=== PATIENT | male | born 2000 | race African-American/Black ===

== ENCOUNTER 2024-01-26 05:50 | Emergency (ER) | payer OTHER, SELFPAY ==
[2024-01-26] VITALS (14 sets, daily range): BP systolic 116–142; BP diastolic 68–93; PULSE 64–88; RESP 16; TEMP 36.3; O2SAT 79–100; BMI 45.8
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
[2024-01-26 06:35] LABS: Basophils Absolute Auto 0.03 K/uL (0.00-0.30); Basophils Percent Auto 0.3 % (0.0-3.0); Eosinophils Percent Auto 2.2 % (0.0-7.0); Hematocrit 46.1 % (37.0-53.0); Hemoglobin* 14.9 gm/dL (13.5-17.5); Immature Granulocytes Abs Auto 0.02 K/uL (0.00-0.30); Immature Granulocytes Pct Auto 0.2 %; Lymphocytes Absolute Auto 3.01 K/uL (0.90-2.90); Lymphocytes Percent Auto 33.8 % (20-44); Mean Corpuscular HGB Conc 32 gm/dL (32-36); Mean Corpuscular Hemoglobin 29 pg (26-34); Mean Corpuscular Volume 89 fL (80-100); Monocytes Percent Auto 6.4 % (0.0-11.0); Neutrophils Absolute Auto 5.08 K/uL (1.7-7.0); Neutrophils Percent Auto 57.1 % (42.0-72.0); Platelet Count* 248 K/uL (140-440); RDW Coefficient of Variation % 12.5 % (11.5-15.5); Red Blood Count 5.18 m/uL (4.30-5.90); White Blood Count* 8.91 K/uL (4.50-11.00)
[2024-01-26 06:36] LABS: Chloride* 104 mmol/L (96-114); Potassium* 3.7 mmol/L (3.6-5.1); Sodium* 136 mmol/L (135-149)
[2024-01-26 06:39] LABS: Anion Gap 7 mEq/L (7-15); Blood Urea Nitrogen* 10 mg/dL (5-24); Calcium* 8.8 mg/dL (8.4-10.6); Carbon Dioxide* 25 mmol/L (20-32); Creatinine* 0.7 mg/dL (0.5-1.5); Est. Creatinine Clearance* 177.06; Estimated Glomerular Filt Rate 131 ml/min; Glucose* 177 mg/dL (60-115); Slide Review Reflex No
[2024-01-26] MEDS: LIDOCAINE 1%-EPI 1:100,000 5 ML INFILTRATI (07:15)
[2024-01-26] MEDS: HYDROmorphone 0.5 mg/0.5 ml inj 1 MG IVP (07:55)
[2024-01-26] MEDS: CEFAZOLIN 2 GM in 0.9 % SODIUM CHLORIDE Mini-bag 100 ML IVPB (08:01)
[2024-01-26] MEDS: TETANUS/DIPHTH/PERTUSSIS 0.5 ML SYRINGE IM (08:17)
== END 2024-01-26 09:08 | disposition other institution (70) ==
PROVIDERS: Emergency Provider Emergency Medicine
DX: S42.202A Unspecified fracture of upper end of left humerus, initial encounter for closed fracture (principal); S42.402B Unspecified fracture of lower end of left humerus, initial encounter for open fracture; V49.3XXA Car occupant (driver) (passenger) injured in unspecified nontraffic accident, initial encounter; S61.411A Laceration without foreign body of right hand, initial encounter
CPT/HCPCS: 12001; 36415; 70450; 71260; 72125; 73030; 73070; 73090; 74177; 80048; 85025; 90471; 90715; 94761; 96365; 96375; 99284; 99291; M0243; G0390; J0690; J1171; Q9967

== ENCOUNTER 2024-01-26 08:33 | Outpatient (CLI) | payer OTHER, SELFPAY ==
--- OUTSIDE RECORDS SUMMARY | 2024-02-11 13:19 | XMS_ITS | Referral Summary ---
Author Organization [facility] Address [address] [place] [phone] Phone Care Team Providers Care Director Workforce Management Name Role Phone Donna Baker MD Unavailable [phone] Source Comments [employer] is fully rolled out on [employer]. Last update 09/15/08.[place] Encounters Date Type Department Care Team Description 02/11/2024 9:40 AM CDT Hospital Encounter [facility] [address] [place] [id number] Kenisha Banuelos PA-C Arrived 02/11/2024 Travel 02/11/2024 9:00 AM CDT [facility] Visit [facility] [address] [place] [id number] Kenisha Banuelos PA-C Left elbow fracture, open, initial encounter (Primary Dx) Discharge Disposition: Discharged to home or self care 02/10/2024 Travel 02/10/2024 1:00 PM CDT Nurse Only [facility] [address] [place] [address] Vivek Shin MD Discharge Disposition: Discharged to home or self care 02/09/2024 Documentation Only [facility] [address] [place] [id number] Donna Baker MD Form - Disability (Unum / Attending Physician Statement ) 01/29/2024 7:30 AM CDT - 01/29/2024 11:07 AM CDT Surgery OR G1 [address] [place] [address] Donna Baker MD ORIF distal humerus 01/29/2024 7:19 AM CDT Anesthesia Event OR G1 [address] [place] [address] Montrell Frias MD Jensen, Anitra Russ MD 01/29/2024 5:38 AM CDT - 01/29/2024 3:35 PM CDT Hospital Encounter PACU G[address] [place] [address] Donna Baker MD Left elbow fracture, open, initial encounter Discharge Disposition: Discharged to home or self care 01/27/2024 DEX MED HOSPITALIST SERV [place] [phone] Vivek Quevedo DO 01/26/2024 9:55 AM CDT - 01/27/2024 5:04 PM CDT Emergency [facility] [place] Orthopaedic [address] [place] [address] Jessica Garza MD Gayken, MD José Gonzales, Daina Del Rio MD Humeral head fracture, left, closed, initial encounter Discharge Disposition: Discharged to home or self care 01/26/2024 5:30 PM CDT Anesthesia Event OR P4 [address] [place] [address] Bryce Ludwig MD Ahinful, Jana P, RN 01/26/2024 4:08 PM CDT - 01/26/2024 5:46 PM CDT Surgery OR P4 [address] [place] [address] Basil Sanz MD IRRIGATION & DEBRIDEMENT ELBOW 01/26/2024 Orders Only [facility] [place] Film Room [facility] Radiology Department [facility] [address] [place] [address] Provider, Outside Referral of patient (Primary Dx) 01/26/2024 Travel from Last 3 Months Allergies No known active allergies Medications * Be aware that medications may not be up to date as of this document. Always verify current medications with patient. Medication Sig Dispensed Refills Start Date End Date Status bacitracin 500 unit/g externally external ointment Apply to lacerations of right arm and hand daily for 7 days, then switch to vaseline 28 g 01/28/2024 Active cyclobenzaprine (FLEXERIL) 10 mg oral Take 1 tablet (10 mg) by mouth 3 times daily as needed for Muscle Spasm(s). 20 tablet 01/27/2024 Active sennosides-docu sate sodium (STOOL SOFTENER/LAXATI VE) 8.6-50 mg oral tablet Take 1 tablet by mouth twice daily. 30 each 01/27/2024 Active acetaminophen (TYLENOL) 325 mg oral tablet Take 2 tablets (650 mg) by mouth every 4 hours as needed for pain 100 each 02/11/2024 Active acetaminophen (TYLENOL) 325 mg oral tablet Take 2 tablets (650 mg) by mouth every 4 hours as needed for Mild Pain or Moderate Pain. 100 each 01/27/2024 02/11/20 24 Discontinued(Reo rder) oxyCODONE (ROXICODONE) 5 mg oral tablet Take 1-2 tablets (5-10 mg) by mouth every 4 hours as needed for Pain. 20 tablet 01/27/2024 01/29/20 24 Discontinued oxyCODONE (ROXICODONE) 5 mg oral tablet Take 1-2 tablets (5-10 mg) by mouth every 4 hours as needed for Pain (Severe). 10 tablet 01/29/2024 02/01/20 24 Active Problems Problem Noted Date Diagnosed Date Humeral head fracture, left, closed, initial enc ounter 01/26/2024 Left elbow fracture, open, initial encounter Social History Tobacco Use Types Packs/Day Years Used Date Smoking Tobacco: Never Assessed Sex and Gender Information Value Date Recorded Sex Assigned at Not on file Gender Identity Not on file Sexual Orientation Not on file Last Filed Vital Signs Vital Sign Reading Time Taken Comments Blood Pressure 111/59 01/29/2024 2:12 PM CDT Pulse 100 01/29/2024 2:12 PM CDT Temperature 35.1 ??C (95.1 ??F) 01/29/2024 1:41 PM CD T Respiratory Rate 22 01/29/2024 2:12 PM CDT Oxygen Saturation 99% 01/29/2024 2:12 PM CDT Inhaled Oxygen Concentration - - Weight 153.8 kg (339 lb) 01/29/2024 5:53 AM CDT Height 182.9 cm (6') 01/29/2024 5:53 AM CDT Body Mass Index 45.98 01/29/2024 5:53 AM CDT Plan of Treatment Upcoming Encounters Date Type Department Care Team (Late st Contact Info) Description 02/12/2024 11:00 AM CDT Hospital Encounter [facility] [address] [place] [phone] 03/14/2024 11:15 AM HUMAN RESOURCES TRAINER Appointment [facility] [address] [place] [address] Kenisha Banuelos PA-C [address] [place] [address] [phone] Scheduled Discharge Disposition: Discharged to home or self care 03/14/2024 11:40 AM HUMAN RESOURCES TRAINER Office [facility] [address] [place] [address] Donna Baker MD [phone] [address] Scheduled Discharge Disposition: Discharged to home or self care Medical Devices Implanted Type Area Refrigerating Technician Device Identifier Shelf Expiration Date Model / Serial / Lot 3.5 Cormikycrew Ar-[id number] Implanted:Qty: 1 on 01/29/2024 by Donna Baker MD at [facility] [place] Left: Elbow [employer] 01/11/2028 [id number] / / [id number] 12-Hole [id number] Implanted:Qty: 1 on 01/29/2024 by Donna Baker MD at [facility] Plate Left: Elbow [employer] PL-[id number] / / 18mm 30-0260 Implanted:Qty: 1 on 01/29/2024 by Donna Baker MD at [facility] Plate Left: Elbow [employer] 30-0260 / / Standard 5-Hole L 70-0304 Implanted:Qty: 1 on 01/29/2024 by Donna Baker MD at [facility] Plate Left: Elbow [employer] 70-0304 / / 18mm 30-0329 Implanted:Qty: 2 on 01/29/2024 by Donna Baker MD at [facility] Screw/[place] Left: Elbow [employer] 30-0329 / / 20mm 30-0330 Implanted:Qty: 1 on 01/29/2024 by Donna Baker MD at [facility] Screw/[place] Left: Elbow [employer] 30-0330 / / 45mm 30-0295 Implanted:Qty: 1 on 01/29/2024 by Donna Baker MD at [facility] Screw/[place] Left: Elbow [employer] 30-0295 / / 24mm 30-0263 Implanted:Qty: 2 on 01/29/2024 by Donna Baker MD at [facility] Screw/[place] Left: Elbow [employer] 30-0263 / / 30mm 30-0266 Implanted:Qty: 2 on 01/29/2024 by Donna Baker MD at [facility] Screw/[place] Left: Elbow [employer] 30-0266 / / 45mm 30-0272 Implanted:Qty: 1 on 01/29/2024 by Donna Baker MD at [facility] Screw/[place] Left: Elbow [employer] 30-0272 / / 50mm 30-0273 Implanted:Qty: 1 on 01/29/2024 by Donna Baker MD at [facility] Screw/[place] Left: Elbow [employer] 30-0273 / / 20mm 30-0261 Implanted:Qty: 1 on 01/29/2024 by Donna Baker MD at [facility] Screw/[place] Left: Elbow [employer] 30-0261 / / 22mm 30-0262 Implanted:Qty: 1 on 01/29/2024 by Donna Baker MD at [facility] Screw/[place] Left: Elbow [employer] 30-0262 / / 3.5 X 65 Mm Va Lkh Screw Implanted:Qty: 1 on 01/29/2024 by Donna Baker MD at [facility] Left: Elbow [employer] [id number] / / 3.5 X 42 Mm Va Lkh Screw Implanted:Qty: 1 on 01/29/2024 by Donna Baker MD at [facility] Left: Elbow [employer] [id number] / / 3.5 X 10 Mm Va Lkh Screw Implanted:Qty: 1 on 01/29/2024 by Donna Baker MD at [facility] Left: Elbow [employer] [id number] / / Axoguard Nerve Protector 3 X 6 Implanted:Qty: 1 on 01/29/2024 by Donna Baker MD at [facility] Left: Elbow [employer] 01/06/2025 [facility] / / [id number] Procedures Procedure Name Priority Date/Time Associated Diagnosis Comments XR ELBOW LEFT 3/4 VIEWS* Routine 02/11/2024 9:56 AM CDT Left elbow fracture, open, initial encounter XR ELBOW LEFT 2 VIEWS Routine 01/29/2024 12:25 PM CDT XR C ARM OVER 3 HRS Routine 01/29/2024 1 2:25 PM CDT INTUBATION Routine 01/29/2024 8:07 AM CDT PF SONO GUIDE NEEDLE BIOPSY Routine 01/29/2024 8:04 AM CDT PF INJECT ANESTHETIC/STEROID, BRACHIAL PLEXUS W/IMG GDN Routine 01/29/2024 8:04 AM CDT PC NEED CUTCH CLEANER REVIEW Urgent (< 48 hrs) 01/29/2024 7:04 AM CDT Left elbow fracture, open, initial encounter TRANSPOSITION, NERVE, ULNAR Urgent (< 48 hrs) 01/29/2024 7:04 AM CDT Left elbow fracture, open, initial encounter REPAIR OR RECONSTRUCTION, LIGAMENT Urgent (< 48 hrs) 01/29/2024 7:04 AM CDT Left elbow fracture, open, initial encounter ORIF, ELBOW Urgent (< 48 hrs) 01/29/2024 7:04 AM CDT Left elbow fracture, open, initial encounter POC GLUCOSE Routine 01/29/2024 6:28 AM CDT POC GLUCOSE Routine 01/27/2024 6:05 AM CDT PC LAB GLYCOSYLATED HGB Routine 01/27/2024 5:22 AM CDT PC LAB CBC/PLT Routine 01/27/2024 5:22 AM CDT PANEL BASIC METABOLIC (BMP) Routine 01/27/2024 5:22 AM CDT POC GLUCOSE Routine 01/27/2024 12:30 AM CDT POC GLUCOSE Routine 01/26/2024 6:40 PM CDT PC NEED CUTCH CLEANER REVIEW Urgent (< 48 hrs) 01/26/2024 5:20 PM CDT Left elbow fracture, open, initial encounter XR SHOULDER LT 2/3V AP/GRASH/Y* STAT 01/26/2024 12:[address] LEFT ELBOW NO IV CONTRAST STAT 01/26/2024 12:49 PM CDT XR ELBOW LEFT 2 VIEWS STAT 01/26/2024 11:26 AM CDT LACERATION REPAIR Routine 01/26/2024 10: 30 AM CDT PC SIMPLE REPAIR, SCALP, NECK, AXILLAE, EXT GENITALIA, TRUNK OR EXTREMITIES; 2.5 CM OR LESS Routine 01/26/2024 10:[address] OUTSIDE READ CHEST/ABD/PELV STAT 01/26/2024 10:[address] OUTSIDE READ SPINE CERVICAL/NECK STAT 01/26/2024 10:[address] OUTSIDE READ HEAD/FACIAL BONES STAT 01/26/2024 10:26 AM CDT TC LAB BLOOD DRAW BY VENIPUNCTURE Routine 01/26/2024 9:57 AM CDT PC TROPONIN QUANTITATIVE STAT 01/26/2024 9:57 AM CDT ETHANOL (ETOH) LEVEL, BLOOD STAT 01/26/2024 9:57 AM CDT PC LAB PTT STAT 01/26/2024 9:57 AM CDT PROTHROMBIN (PT) & INR STAT 01/26/2024 9:57 AM CDT PC LAB ED INR STAT 01/26/2024 9:57 AM CDT PC LACTATE (LACTIC ACID) STAT 01/26/2024 9:57 AM CDT FIBRINOGEN STAT 01/26/2024 9:57 AM CDT PANEL HEPATIC FUNCTION STAT 01/26/2024 9:57 AM CDT TC LAB ER STAT TOTAL HGB STAT 01/26/2024 9:57 AM CDT PC ELECTROLYTES PANEL STAT 01/26/2024 9:57 AM CDT PC LAB CBC W/DIFF & PLT STAT 01/26/2024 9:57 AM CDT PC GASES,BLOOD,ANY COMB OF PH,PCD2,PO2,CO2,HCO2 STAT 01/26/2024 9:57 AM CDT ED US CRITICAL CARE STAT 01/26/2024 9 :56 AM CDT PC ANTIBODY SCREEN,RBC,EACH SERUM TECHNIQUE Routine 01/26/2024 9:51 AM CDT PC LAB RH TYPE GEL Routine 01/26/2024 9: 51 AM CDT PRECAUTIONARY TUBE STAT 01/26/2024 9: 51 AM CDT XR UPPER EXTREMITY OUTSIDE FILMS Routine 01/26/2024 6:54 AM CDT Referral of patient XR UPPER EXTREMITY OUTSIDE FILMS Routine 01/26/2024 6:51 AM CDT Referral of patient XR UPPER EXTREMITY OUTSIDE FILMS Routine 01/26/2024 6:47 AM CDT Referral of patient from Last 3 Months Results * XR ELBOW LEFT 3/4 VIEWS* (02/11/2024 9:56 AM CDT) Anatomical Region Laterality Modality Lower Arm Digital Radiogra phy 02/11/2024 10:0 3 AM CDT Impressions 02/11/2024 10:06 AM CDT Impression: Restored anatomic alignment Reading Radiologist: Basil Elias Narrative 02/11/2024 10:06 AM CDT EXAMINATION: XR ELBOW LEFT 3/4 VIEWS* 02/11/2024 9:56 AM Indication: ??PO ORIF ??. Comparison: 01/26/2024 Findings: Postop ORIF left elbow fracture with metaphyseal plate and olecranon plate restore anatomic configuration to the comminuted elbow fracture. Suture anchor present lateral epicondyle. Procedure Note Basil Elias MD - 02/11/2024 EXAMINATION: XR ELBOW LEFT 3/4 VIEWS* 02/11/2024 9:56 AM Indication: PO ORIF . Comparison: 01/26/2024 Findings: Postop ORIF left elbow fracture with metaphyseal plate andolecranon plate restore anatomic configuration to the comminuted elbowfracture. Suture anchor present lateral epicondyle. IMPRESSION Impression: Restored anatomic alignment Reading Radiologist: Basil Elias Kenisha Banuelos [facility] * XR ELBOW LEFT 2 VIEWS (01/29/2024 12:25 PM CDT) Only the most recent of2 resultswithin the time period is included. Anatomical Region Laterality Modality Lower Arm Radio Fluoroscop y 01/29/2024 1:13 PM CDT Impressions 01/29/2024 1:21 PM CDT Impression: Spot films and fluoroscopy time provided to the OR. I have personally reviewed the image(s) and initial interpretation, and I agree with the findings as documented by the resident/fellow. Reading Radiologist: Dg Negrete Resident: Danny Mooney Narrative 01/29/2024 1:21 PM CDT Technique: XR ELBOW LEFT 2 VIEWS Indication:ORIF left elbow Comparison:AP and lateral views of the left elbow dated 01/26/2024. Fluoroscopy time:0.9 minutes Dose:2.47 mGy Findings: Fluoroscopy time and spot-film imaging was provided to the OR. Spot images show interval plate and screw fixation of the left distal humerus and proximal ulna fractures. Alignment has improved. Joint is preserved. No radiologist was present. Procedure Note Dg Negrete, DO - 01/29/2024 Technique: XR ELBOW LEFT 2 VIEWS Indication:ORIF left elbow Comparison:AP and lateral views of the left elbow dated 01/26/2024. Fluoroscopy time:0.9 minutes Dose:2.47 mGy Findings: Fluoroscopy time and spot-film imaging was provided to the OR.Spot images show interval plate and screw fixation of the left distalhumerus and proximal ulna fractures. Alignment has improved. Joint ispreserved. No radiologist was present. IMPRESSION Impression: Spot films and fluoroscopy time provided to the OR. I have personally reviewed the image(s) and initial interpretation, and Iagree with the findings as documented by the resident/fellow. Reading Radiologist: Dg Negrete Resident: Danny Mooney Donna Baker MD RAD XRAY * XR C ARM OVER 3 HRS (01/29/2024 12:25 PM CDT) Donna Baker MD RAD FLUORO * Intubation/Airway (01/29/2024 8:07 AM CDT) Narrative Rodrigue Elias APRN, CRNA - 01/29/2024 8:07 AM CDT Rodrigue Elias APRN, CRNA ? 01/29/2024 ??8:08 AM AIRWAY/INTUBATION PROCEDURE direct laryngoscopy ??(Type: Surgical Anesthesia) Process/Method: sedated and paralyzed ?? Indications for procedure: surgery Assessment: TMD >3 finger breadths and vocal cords open and clear Preoxygenation: mask Device Device used: Emotient Supporting device: ?? Blade size: 2 The patient was intubated with a 8.0 mm standard endotracheal tube inflated to seal and secured at 24 cm to Lips Grade: II Sellicks not used Narrative 1 intubation attempt(s) confirmed in 0-30 sec ?? Intubation Assessment: +ETCO2, EBBS and fog in ETT Ease of masking (I-easy to IV-difficult): I Ease of intubation (I-easy to IV-difficult): I Dentition Assessment: dentition unchanged and oral mucosa unchanged Performed by: APPELLATE CONFEREE: Rodrigue Elias APRN, CRNA Additional Notes Ramp used Events Anesthesia start: 01/29/2024 7:19 AM Intubation time: 01/29/2024 7:36 AM Montrell Frias MD PROCEDURES * PF INJECT ANESTHETIC/STEROID, BRACHIAL PLEXUS W/IMG GDN, ROSLYN SONO GUIDE NEEDLE BIOPSY (01/29/2024 8:04 AM CDT) Narrative Montrell Frias MD - 01/29/2024 8:04 AM CDT Montrell Frias MD ? 01/29/2024 ??8:05 AM NERVE BLOCK PROCEDURE ?? supraclavicular (Type: At surgeon's request for post-op analgesia) Laterality: left Prep: ChloraPrep Patient Position: Sitting [place] Precautions Completed: patient identified, site marked, surgical consent, pre-op evaluation, timeout performed, IV checked, risks and benefits discussed and monitors and equipment checked Medications bupivacaine 0.25%-EPINEPHrine (1:200,000) 0.25% (1:427419) injection - Block 30 mL - 01/29/2024 7:25:00 AM dexmedetomidine (PRECEDEX) ANES/INTRA-OP NERVE BLOCK only - Block 50 mcg - 01/29/2024 7:25:00 AM Narrative A 10 cm 21 G [place] ??needle was used. The block was placed as a single-shot Technique: ultrasound guidance. Ultrasound guidance was used to image the upper extremity. A hard copy image was not stored in the patient's record documenting this service using real time ultrasound guidance. No complications Paresthesias: No There was no blood or CSF return on aspiration ?? The injection was not painful to the patient ? no bleeding at site Performed by: APPELLATE CONFEREE:Anesthesiologist: Montrell Frias MD Montrell Frias MD PROCEDURES * POC GLUCOSE (01/29/2024 6:28 AM CDT) Only the most recent of4 resultswithin the time period is included. POC Glucose 86 70 - 100 mg/dL [facility] Blood 01/29/2024 6:28 AM CDT Donna Baker MD LABORATORY [facility] [address] [place] [address], * (ABNORMAL) PANEL BASIC METABOLIC (BMP) (01/27/2024 5:22 AM CDT) Pathologist [facility] CO2 24 22 - 30 mmol/L [facility] [place] [facility] Glucose 121(H) 70 - 100 mg/dL [facility] [place] [place] [facility] BUN 10 6 - 20 mg/dL [facility] [place] [place] [facility] Creatinine 0.79 0.70 - 1.25 mg/dL [facility] [place] [place] [facility] Calcium 8.5(L) 8.6 - 10.0 mg/dL [facility] [place] [place] [facility] Sodium 137 135 - 148 mmol/L [facility] [place] [place] [facility] Potassium 4.4 3.5 - 5.3 mmol/L [facility] [place] [place] [facility] Chloride 104 92 - 108 mmol/L [facility] [place] [place] [facility] eGFR (2020 CKD-EPI) >120 >=60 ml/min/1.7 3m2 [facility] [place] [place] [facility] Comment: The estimated glomerular filtration rate (eGFR) was calculated using the CKD-EPI 2020 creatinine equation, which does not include race as a factor. This equation is validated in individuals 18 years of age and older, and eGFR is normalized to a body surface area of 1.73m^2. AnGap 9 8 - 16 mmol/L [facility] [place] [place] [facility] Blood 01/27/2024 5:22 AM CDT 01/27/2024 6:21 AM CDT Jessica Garza MD LABORATORY Performing Organization Address [facility] Co de Phone Number [facility] [place] [place] [facility] [address] [address] * (ABNORMAL) GLYCOSYLATED HGB - A1C (01/27/2024 5:22 AM CDT) Hemoglobin A1C 5.8(H) 4.0 - 5.6 % [facility] [place] [place] [facility] Comment: Increased risk for diabetes (prediabetes): 5.7-6.4% Diabetes >=6.5% In the absence of unequivocal hyperglycemia, diagnosis requires two abnormal test results (i.e. HbA1c and glucose) or two abnormal results from specimens collected at two different timepoints. The presence of some hemoglobin variants or red cell disorders may interfere with the measurement of hemoglobin A1c (HbA1c). Estimated Average Glucose 120(H) 68 - 114 mg/dL [facility] [place] [place] [facility] Comment: The estimated Average Glucose (eAG) was calculated using an equation derived from a study of 507 adults with type 1, type 2, or no diabetes. Minority populations were underrepresented and children were not included. The eAG is not equivalent to a fasting glucose concentration. Blood 01/27/2024 5:22 AM CDT 01/27/2024 12:35 PM CDT Eric Anthony MD LABORATORY Performing Organization Address [facility] Co de Phone Number [facility] [place] [place] [facility] [address] [address] * (ABNORMAL) CBC WITH PLATELET (01/27/2024 5:22 AM CDT) WBC 5.77 4.00 - 10.00 k/cmm [facility] [place] [place] [facility] RBC 4.56(L) 4.60 - 6.00 m/cmm [facility] [place] [place] [facility] Hgb 13.3 13.1 - 17.5 g/dL [facility] [place] [place] [facility] Hematocrit 40.6 40.0 - 51.0 % [facility] [place] [place] [facility] MCV 89.0 80.0 - 100.0 fL [facility] [place] [place] [facility] MCH 29.2 25.0 - 32.0 pg [facility] [place] [place] [facility] MCHC 32.8 31.0 - 36.0 g/dL [facility] [place] [place] [facility] RDW 12.9 11.5 - 14.5 % [facility] [place] [place] [facility] Plt 170 150 - 400 k/cmm [facility] [place] [place] [facility] MPV 12.1 6.5 - 12.5 fL [facility] [place] [place] [facility] Blood 01/27/2024 5:22 AM CDT 01/27/2024 6:20 AM CDT Jessica Garza MD LABORATORY Performing Organization Address City/State/[facility] Co de Phone Number [facility] [place] [place] [facility] [address] [address] * XR SHOULDER LT 2/3V AP/GRASH/Y* (01/26/2024 12:59 PM CDT) Anatomical Region Laterality Modality Upper Arm Computed Radiogr aphy 01/26/2024 1:01 PM CDT Impressions 01/26/2024 1:03 PM CDT Impression: Comminuted, depressed fracture of the left humerus greater tuberosity. Reading Radiologist: Dg Negrete Narrative 01/26/2024 1:03 PM CDT Technique: XR SHOULDER LT 2/3V AP/GRASH/Y* Indication: trauma, possible fracture ?? Comparison: Same-day CT Findings: Comminuted and depressed fracture of the greater tuberosity of the proximal left humerus. Left surgical neck is intact. Preserved alignment of the shoulder articulations. Procedure Note Dg Negrete DO - 01/26/2024 Technique: XR SHOULDER LT 2/3V AP/GRASH/Y* Indication: trauma, possible fracture Comparison: Same-day CT Findings: Comminuted and depressed fracture of the greater tuberosity ofthe proximal left humerus. Left surgical neck is intact. Preservedalignment of the shoulder articulations. IMPRESSION Impression: Comminuted, depressed fracture of the left humerus greater tuberosity. Reading Radiologist: Dg Negrete Jessica Garza MD RAD XRAY * CT LEFT ELBOW NO IV CONTRAST (01/26/2024 12:49 PM CDT) Anatomical Region Laterality Modality Upper Arm Computed Tomogra phy 01/26/2024 12:0 9 PM CDT Impressions 01/26/2024 9:15 PM CDT Impression: 1. Comminuted fracture of the medial condyle of the distal humerus with pronounced peripheral displacement of condylar and epicondyle fragments, the peripheral- most fragment approximating medial soft tissue/cutaneous injury. 2. Avulsion/chip fractures of the medial margins of the olecranon process. 3. Widening and posterior subluxation of the radiocapitellar joint. The capitellar articular surface appears preserved. 4. Fluid distention of the olecranon bursa with adjacent subcutaneous edema and scattered subcutaneous and intramuscular gas. Reading Radiologist: Dg Negrete Narrative 01/26/2024 9:15 PM CDT Comparison: Radiograph, 01/26/2024 Indication: ??intra-articular left elbow fracture ? Technique: Volumetric helical acquisition of CT images of the left elbow without intravenous contrast. DOSE: ?Total DLP = 1894.9 mGy.cm. ?? Findings: Osseous Structures: Comminuted and minimally displaced fracture primarily involving the medial condyle of the distal humerus. The capitellar articular surface appears grossly intact without distinct supracondylar fracture. Blunting along the medial aspect of the olecranon process concerning for avulsion or chip fracture. Otherwise, proximal radius and ulna are intact. Posterior subluxation of the radius relative capsular articular surface. Soft Tissues: Peripheral-most bony fragment approximate the cutaneous surface with areas evidence of laceration/wound (series 202, image 101). Adjacent and emanating soft tissue gas and olecranon predominant subcutaneous fluid. Gas extends superiorly along the biceps musculature and medial neurovascular structures. Triceps and biceps tendon appear grossly intact. Joint effusion. Procedure Note Dg Negrete, - 01/26/2024 Comparison: Radiograph, 01/26/2024 Indication: intra-articular left elbow fracture Technique: Volumetric helical acquisition of CT images of the left elbowwithout intravenous contrast. DOSE: Total DLP = 1894.9 mGy.cm. Findings: Osseous Structures: Comminuted and minimally displaced fracture primarilyinvolving the medial condyle of the distal humerus. The capitellararticular surface appears grossly intact without distinct supracondylarfracture. Blunting along the medial aspect of the olecranon process concerning foravulsion or chip fracture. Otherwise, proximal radius and ulna are intact.Posterior subluxation of the radius relative capsular articular surface. Soft Tissues: Peripheral-most bony fragment approximate the cutaneoussurface with areas evidence of laceration/wound (series 202, image 101).Adjacent and emanating soft tissue gas and olecranon predominantsubcutaneous fluid. Gas extends superiorly along the biceps musculatureand medial neurovascular structures. Triceps and biceps tendon appeargrossly intact. Joint effusion. IMPRESSION Impression: 1. Comminuted fracture of the medial condyle of the distal humerus withpronounced peripheral displacement of condylar and epicondyle fragments,the peripheral-most fragment approximating medial soft tissue/cutaneousinjury. 2. Avulsion/chip fractures of the medial margins of the olecranonprocess. 3. Widening and posterior subluxation of the radiocapitellar joint. Thecapitellar articular surface appears preserved. 4. Fluid distention of the olecranon bursa with adjacent subcutaneousedema and scattered subcutaneous and intramuscular gas. Reading Radiologist: Dg Negrete Jessica Garza MD RAD CT BODY * Nerve Block (01/26/2024 10:30 AM CDT) Narrative Jessica Garza MD - 01/26/2024 10:30 AM CDT Alexsandra Arias MD ? 01/26/2024 12:43 PM Nerve Block Performed by: Alexsandra Arias MD Authorized by: Jessica Garza MD ?? Consent: ??Consent obtained: ??Verbal ??Consent given by: ??Patient ??Risks discussed: ??Allergic reaction, bleeding, intravenous injection, infection, nerve damage, pain, unsuccessful block and swelling [place] protocol: ??Patient identity confirmed: ??Verbally with patient, arm band and hospital-assigned identification number Indications: ??Indications: ??Procedural anesthesia Location: ??Body area: ??Upper extremity ??Upper extremity nerve blocked: Median and ulnar. ??Laterality: ??Right Pre-procedure details: ??Skin preparation: ??Chlorhexidine ??Preparation: Patient was prepped and draped in usual sterile fashion ?? Procedure details: ??Block needle gauge: ??25 G ??Guidance: ultrasound ?Anesthetic injected: ??Lidocaine 1% WITH epi (5cc) ??Steroid injected: ??None ??Additive injected: ??None ??Injection procedure: ??Anatomic landmarks identified, anatomic landmarks palpated, incremental injection, introduced needle and negative aspiration for blood ??Paresthesia: ??None Post-procedure details: ??Dressing: ??None ??Outcome: ??Anesthesia achieved ??Procedure completion: ??Tolerated well, no immediate complications Jessica Garza MD PROCEDURES * Laceration Repair (01/26/2024 10:30 AM CDT) Narrative Jessica Garza MD - 01/26/2024 10:30 AM CDT Alexsandra Arias MD ? 01/26/2024 12:43 PM Laceration Repair Performed by: Alexsandra Arias MD Authorized by: Jessica Garza MD ?? Consent: ??Consent obtained: ??Verbal ??Consent given by: ??Patient ??Risks discussed: ??Infection, poor wound healing, poor cosmetic result and pain [place] protocol: ??Patient identity confirmed: ??Verbally with patient, arm band and hospital-assigned identification number Anesthesia: ??Anesthesia method: see nerve block note. Laceration details: ??Location: ??Shoulder/arm ??Shoulder/arm location: ??R lower arm ??Wound length (cm): see picture. Pre-procedure details: ??Preparation: ??Patient was prepped and draped in usual sterile fashion Exploration: ??Imaging outcome: foreign body not noted ?Wound exploration: entire depth of wound visualized ?Wound extent: no areolar tissue violation noted, no fascia violation noted, no foreign bodies/material noted, no muscle damage noted, no nerve damage noted, no tendon damage noted, no underlying fracture noted and no vascular damage noted ?Contaminated: no ?? Treatment: ??Area cleansed with: ??Povidone-iodine and chlorhexidine ??Amount of cleaning: ??Standard ??Irrigation solution: ??Sterile water ??Debridement: ??None ??Undermining: ??None Skin repair: ??Repair method: ??Sutures ??Suture size: ??4-0 ??Wound skin closure material used: ethilon. ??Number of sutures: 10 total, 4-3-3 split between his lacerations. Approximation: ??Approximation: ??Close Repair type: ??Repair type: ??Simple Post-procedure details: ??Dressing: ??Open (no dressing) ??Procedure completion: ??Tolerated well, no immediate complications Jessica Garza MD PROCEDURES * CT OUTSIDE READ CHEST/ABD/PELV (01/26/2024 10:27 AM CDT) Anatomical Region Laterality Modality Chest, Pelvis, Abdomen Computed Tomography 01/26/2024 10:3 8 AM CDT Impressions 01/26/2024 1:08 PM CDT Impression: ?? 1. Suspect a left proximal humerus fracture. 2. Subtle asymmetric angulation of the posterior right 5th-9th ribs; although this appearance could be within normal limits, ??nondisplaced buckle-type fractures of the ribs are a possibility. 3. No suspected acute sequela of trauma in the abdomen or pelvis. The findings were communicated to Dr. Alvarez of the admitting trauma surgery service by [employer] message at 1315 hours on 01/26/[address] Stark. I have personally reviewed the image(s) and initial interpretation, and I agree with the findings as documented by the resident/fellow. Reading Radiologist: Phu Stark Resident: Christian Escobar Narrative 01/26/2024 1:08 PM CDT Indication: ??Patient transferred from [facility] due to Trauma. ??Dr. ??JESSICA GARZA requested an interpretation by me. Technique: ??CT scan of the chest/abdomen/pelvis done on 01/26/2024 with IV contrast. ??3 mm axial, sagittal and coronal reconstructions reviewed in soft tissue and bone windows, per the local institution's scanning protocols, which may differ from the [facility] [place] trauma protocols. Findings: Chest: Lungs: No lung nodule or mass. No consolidation. Mild reticular opacity in the dependent right lower lobe beneath the angulated right fifth through ninth ribs, favored atelectasis; contusion is felt less likely. Airway: Patent. Pleura: No pleural effusion or pneumothorax. Thoracic aorta and great vessels: Unremarkable. Pulmonary arteries: Unremarkable. Mediastinum, heart and pericardium: The heart is not enlarged. No pericardial effusion. Lymph nodes: No enlarged thoracic lymph nodes. Prominent bilateral axillary lymph nodes, presumably reactive. Other: Foci of air along the left subclavian vein, likely secondary to venous catheterization. The thyroid gland is unremarkable. Abdomen/Pelvis: Liver: Within normal limits. Gallbladder and biliary: No gallstones or biliary sludge. ??No wall thickening. ??No pericholecystic fluid. ??No significant intrahepatic or intrahepatic biliary dilatation. Pancreas: Within normal limits. Spleen: Within normal limits. Adrenals: Within normal limits. Kidneys/Ureters/Bladder: No hydronephrosis, renal calculi, or suspicious renal masses. ??Bladder is unremarkable. Reproductive: Within normal limits. Stomach/Esophagus: Within normal limits. Bowel: No dilated loops of small or large bowel. The stomach is unremarkable. The appendix is normal. Peritoneum/Retroperitoneum: No free air, free fluid, or acute inflammatory changes. Vessels: No aneurysmal dilatation of the aorta. Patent portal vein and superior mesenteric vein. Lymph Nodes: Subcentimeter mesenteric lymph nodes, likely reactive. Bones/Soft Tissues: Bones: Suspect a fracture of the left humeral head and greater tuberosity (series 7, images 1-6). Subtle asymmetric angulation of the posterior right 5th-9th ribs. Sclerotic foci in the bilateral ischial tuberosities and proximal femora likely represent benign bony islands. Soft tissues: No convincing acute soft tissue abnormality. Mild bilateral gynecomastia. Procedure Note Phu Stark, - 01/26/2024 Indication: Patient transferred from [facility] due to Trauma.Dr. JESSICA GARZA requested an interpretation by me. Technique: CT scan of the chest/abdomen/pelvis done on 01/26/2024 with IVcontrast. 3 mm axial, sagittal and coronal reconstructions reviewed insoft tissue and bone windows, per the local institution's scanningprotocols, which may differ from the [facility] [place] trauma protocols. Findings: Chest: Lungs: No lung nodule or mass. No consolidation. Mild reticular opacity inthe dependent right lower lobe beneath the angulated right fifth throughninth ribs, favored atelectasis; contusion is felt less likely. Airway: Patent. Pleura: No pleural effusion or pneumothorax. Thoracic aorta and great vessels: Unremarkable. Pulmonary arteries: Unremarkable. Mediastinum, heart and pericardium: The heart is not enlarged. Nopericardial effusion. Lymph nodes: No enlarged thoracic lymph nodes. Prominent bilateralaxillary lymph nodes, presumably reactive. Other: Foci of air along the left subclavian vein, likely secondary tovenous catheterization. The thyroid gland is unremarkable. Abdomen/Pelvis: Liver: Within normal limits. Gallbladder and biliary: No gallstones or biliary sludge. No wallthickening. No pericholecystic fluid. No significant intrahepatic orintrahepatic biliary dilatation. Pancreas: Within normal limits. Spleen: Within normal limits. Adrenals: Within normal limits. Kidneys/Ureters/Bladder: No hydronephrosis, renal calculi, or suspiciousrenal masses. Bladder is unremarkable. Reproductive: Within normal limits. Stomach/Esophagus: Within normal limits. Bowel: No dilated loops of small or large bowel. The stomach isunremarkable. The appendix is normal. Peritoneum/Retroperitoneum: No free air, free fluid, or acute inflammatorychanges. Vessels: No aneurysmal dilatation of the aorta. Patent portal vein andsuperior mesenteric vein. Lymph Nodes: Subcentimeter mesenteric lymph nodes, likely reactive. Bones/Soft Tissues: Bones: Suspect a fracture of the left humeral head and greater tuberosity(series 7, images 1-6). Subtle asymmetric angulation of the posteriorright 5th-9th ribs. Sclerotic foci in the bilateral ischial tuberosities and proximal femoralikely represent benign bony islands. Soft tissues: No convincing acute soft tissue abnormality. Mild bilateralgynecomastia. IMPRESSION Impression: 1. Suspect a left proximal humerus fracture. 2. Subtle asymmetric angulation of the posterior right 5th-9th ribs;although this appearance could be within normal limits, nondisplacedbuckle-type fractures of the ribs are a possibility. 3. No suspected acute sequela of trauma in the abdomen or pelvis. The findings were communicated to Dr. Alvarez of the admitting traumasurgery service by [employer] message at 1315 hours on 01/26/2024 by . I have personally reviewed the image(s) and initial interpretation, and Iagree with the findings as documented by the resident/fellow. Reading Radiologist: Phu Stark Resident: Christian Escobar Jessica Garza MD RAD CT BODY * CT OUTSIDE READ SPINE CERVICAL/NECK (01/26/2024 10:27 AM CDT) Anatomical Region Laterality Modality Cervical Spine Computed Tomogra phy 01/26/2024 10:3 1 AM CDT Impressions 01/26/2024 11:01 AM CDT Impression: ??No acute fracture or traumatic subluxation of the cervical spine. I have personally reviewed the image(s) and initial interpretation, and I agree with the findings as documented by the resident/fellow. Reading Radiologist: Sulaiman Sanchez Resident: Obed Thompson Narrative 01/26/2024 11:01 AM CDT Indication: ??Patient transferred from [facility] due to Trauma. ??No initial report accompanied the patient and/or Dr. ??JESSICA GARZA requested an interpretation by me. Technique: ??CT scan of the cervical spine done on 01/26/2024 without IV contrast. ??3 mm axial, sagittal and coronal reconstructions reviewed in soft tissue and bone windows, per the local institution's scanning protocols, which may differ from the [facility] [place] trauma protocols. Findings: ?? The lateral masses of C1 appear normally aligned on C2. Straightening of the normal cervical lordotic curvature, likely positional with c-collar in place. ??Alignment of the cervical vertebrae appears intact. There is no evidence of fracture or significant prevertebral soft tissue swelling. ??There is no significant disc space narrowing at any level. No significant neural foraminal narrowing or spinal canal stenosis at any level. Paracervical soft tissues are unremarkable. Procedure Note Sulaiman Sanchez MD - 01/26/2024 Indication: Patient transferred from [facility] due to Trauma.No initial report accompanied the patient and/or Dr. JESSICA Camargoequested an interpretation by me. Technique: CT scan of the cervical spine done on 01/26/2024 without IVcontrast. 3 mm axial, sagittal and coronal reconstructions reviewed insoft tissue and bone windows, per the local institution's scanningprotocols, which may differ from the [facility] [place] trauma protocols. Findings: The lateral masses of C1 appear normally aligned on C2. Straightening ofthe normal cervical lordotic curvature, likely positional with c-collar inplace. Alignment of the cervical vertebrae appears intact. There is noevidence of fracture or significant prevertebral soft tissue swelling.There is no significant disc space narrowing at any level. No significant neural foraminal narrowing or spinal canal stenosis at anylevel. Paracervical soft tissues are unremarkable. IMPRESSION Impression: No acute fracture or traumatic subluxation of the cervicalspine. I have personally reviewed the image(s) and initial interpretation, and Iagree with the findings as documented by the resident/fellow. Reading Radiologist: Sulaiman Sanchez Resident: Obed Thompson Jessica Garza MD RAD CT NEURO * CT OUTSIDE READ HEAD/FACIAL BONES (01/26/2024 10:26 AM CDT) Anatomical Region Laterality Modality Skull Computed Tomogra phy 01/26/2024 10:3 0 AM CDT Impressions 01/26/2024 11:04 AM CDT Impression: No acute intracranial pathology. I have personally reviewed the image(s) and initial interpretation, and I agree with the findings as documented by the resident/fellow. Reading Radiologist: Sulaiman Sanchez Resident: Lissette Bernabe 01/26/2024 11:04 AM CDT Indication: ??Patient transferred from [facility] due to Trauma. ??No initial report accompanied the patient and/or Dr. ??JESSICA GARZA requested an interpretation by me. Technique: ??CT scan of the head done on 01/26/2024 without IV contrast. ??3 mm axial and coronal reconstructions reviewed in soft tissue and bone windows, per the local institution's scanning protocols, which may differ from the [facility] [place] trauma protocols. Findings: There is no evidence of intracranial hemorrhage, mass effect, midline shift or abnormal extraaxial fluid collection. There is no definite evidence of acute infarction. The ventricles and sulci appear appropriate for age. Gee-white differentiation is normal throughout both cerebral hemispheres. The bony calvarium and the bones of the skull base appear normal. Review of visualized dentition does not reveal significant periapical dental disease. Mucosal thickening of the ethmoid sinuses. The visualized portions of the remaining paranasal sinuses and the mastoid air cells are clear. Procedure Note Sulaiman Sanchez MD - 01/26/2024 Indication: Patient transferred from [facility] due to Trauma.No initial report accompanied the patient and/or Dr. JESSICA Camargoequested an interpretation by me. Technique: CT scan of the head done on 01/26/2024 without IV contrast. 3mm axial and coronal reconstructions reviewed in soft tissue and bonewindows, per the local institution's scanning protocols, which may differfrom the [facility] [place] trauma protocols. Findings: There is no evidence of intracranial hemorrhage, mass effect,midline shift or abnormal extraaxial fluid collection. There is nodefinite evidence of acute infarction. The ventricles and sulci appearappropriate for age. Gee-white differentiation is normal throughout bothcerebral hemispheres. The bony calvarium and the bones of the skull base appear normal. Reviewof visualized dentition does not reveal significant periapical dentaldisease. Mucosal thickening of the ethmoid sinuses. The visualizedportions of the remaining paranasal sinuses and the mastoid air cells areclear. IMPRESSION Impression: No acute intracranial pathology. I have personally reviewed the image(s) and initial interpretation, and Iagree with the findings as documented by the resident/fellow. Reading Radiologist: Sulaiman Sanchez Reading Resident: Lissette Bernabe Jessica Garza MD RAD CT NEURO * ED INR (01/26/2024 9:57 AM CDT) [facility] ED INR 1.1 0.8 - 1.1 [facility] [place] [place] [facility] Comment: Warfarin Therapeutic Range: Standard Intensity: 2.0 - 3.0 High Intensity: 2.5 - 3.5 This is a rapid INR screening test which uses whole blood; results may infrequently differ from plasma INR results. If medication adjustments/dosing are required a PT/INR test ([id number]) should be ordered and performed in the main laboratory. Blood 01/26/2024 9:57 AM CDT 01/26/2024 10:04 AM CDT Jessica Garza MD LABORATORY Performing Organization Address [facility] Co de Phone Number [facility] [place] [place] [facility] [address] [address] * EXTRA TUBE - SST (01/26/2024 9:57 AM CDT) [facility] SST TUBE Stored [facility] [place] [place] [facility] Comment:SST tubes (Serum Sep arator) are stored in the lab for 3 days from the collection date. Blood 01/26/2024 9:57 AM CDT 01/26/2024 10:06 AM CDT Jessica Garza MD LABORATORY Performing Organization Address [facility] Co de Phone Number [facility] [place] [place] [facility] [address] [address] * HS TROPONIN (01/26/2024 9:57 AM CDT) [facility] HS Troponin I <3 <=35 ng/L [facility] [place] [place] [facility] Blood 01/26/2024 9:57 AM CDT 01/26/2024 10:04 AM CDT Narrative [facility] [place] [place] [facility] - 01/26/2024 10:35 AM CDT First Occurrence of the Troponin order is to be drawn Stat by Nursing staff on the unit. Jessica Garza MD LABORATORY Performing Organization Address [facility] Co de Phone Number [address] [address] * (ABNORMAL) ED CHEMISTRY LABS(NA,K,CL,CO2,GLU,CREAT,CA-IONIZED,ANION GAP) (01/26/2024 9:57 AM CDT) [facility] Sodium 141 135 - 148 mmol/L [facility] [place] [place] [facility] Chloride 102 92 - 108 mmol/L [facility] [place] [place] [facility] AnGap 11 8 - 16 mmol/L [facility] [place] [place] [facility] Glucose 129(H) 70 - 100 mg/dL [facility] [place] [place] [facility] ICA, Actual 4.68 4.40 - 5.20 mg/dL [facility] [place] [place] [facility] ICA, pH Corrected 4.49 4.40 - 5.20 mg/dL [facility] [place] [place] [facility] Creatinine 0.99 0.70 - 1.25 mg/dL [facility] [place] [place] [facility] BICARB 27(H) 22 - 26 mEq/L [facility] [place] [place] [facility] eGFR (2020 CKD-EPI) 108 >=60 ml/min/1.7 3m2 [facility] [place] [place] [facility] Comment: The estimated glomerular filtration rate (eGFR) was calculated using the CKD-EPI 2020 creatinine equation, which does not include race as a factor. This equation is validated in individuals 18 years of age and older, and eGFR is normalized to a body surface area of 1.73m^2. Potassium 4.4 3.5 - 5.3 mmol/L [facility] [place] [place] [facility] Blood 01/26/2024 9:57 AM CDT 01/26/2024 10:07 AM CDT Jessica Garza MD LABORATORY [facility] [place] [place] [facility] [address] [address] * (ABNORMAL) CBC WITH PLTS/AUTO DIFF (01/26/2024 9:57 AM CDT) WBC 17.97(H) 4.00 - 10.00 k/cmm [facility] [place] [place] [facility] RBC 5.31 4.60 - 6.00 m/cmm [facility] [place] [place] [facility] Hgb 15.4 13.1 - 17.5 g/dL [facility] [place] [place] [facility] Hematocrit 47.8 40.0 - 51.0 % [facility] [place] [place] [facility] MCV 90.0 80.0 - 100.0 fL [facility] [place] [place] [facility] MCH 29.0 25.0 - 32.0 pg [facility] [place] [place] [facility] MCHC 32.2 31.0 - 36.0 g/dL [facility] [place] [place] [facility] RDW 12.6 11.5 - 14.5 % [facility] [place] [place] [facility] Plt 250 150 - 400 k/cmm [facility] [place] [place] [facility] MPV 10.7 6.5 - 12.5 fL [facility] [place] [place] [facility] Automated Abs Neutrophil 15.71(H) 1.70 - 6.50 k/cmm [facility] [place] [place] [facility] Comment:Preliminary ANC, Fin al Result to Follow Abs Immature Granulocyte 0.08 0.00 - 0.09 k/cmm [facility] [place] [place] [facility] Comment:The Immature Granulo cyte Absolute count contains metamyelocytes and myelocytes. Abs Neutrophil 15.71(H) 1.70 - 6.50 k/cmm [facility] [place] [place] [facility] Abs Lymphocyte 1.01 0.80 - 4.00 k/cmm [facility] [place] [place] [facility] Abs Monocyte 1.15(H) 0.20 - 1.00 k/cmm [facility] [place] [place] [facility] Abs Eosinophil 0.00 0.00 - 0.60 k/cmm [facility] [place] [place] [facility] Abs Basophil 0.02 0.00 - 0.20 k/cmm [facility] [place] [place] [facility] Blood 01/26/2024 9:57 AM CDT 01/26/2024 10:24 AM CDT Jessica Garza MD LABORATORY Performing Organization Address [facility] Co de Phone Number [facility] [place] [place] [facility] [place] [phone] * ED HEMOGLOBIN TOTAL (ED ONLY) (01/26/2024 9:57 AM CDT) Hgb 15.8 13.1 - 17.5 g/dL [facility] [place] [place] [facility] Blood 01/26/2024 9:57 AM CDT 01/26/2024 10:07 AM CDT Jessica Garza MD LABORATORY Performing Organization Address [facility] Co de Phone Number [facility] [place] [place] [facility] [address] [address] * PROTHROMBIN (PT) & INR (01/26/2024 9:57 AM CDT) PT 11.6 9.0 - 12.5 sec [facility] [place] [place] [facility] INR 1.0 0.8 - 1.1 [facility] [place] [place] [facility] Comment: Warfarin Therapeutic Range: Standard Intensity: 2.0 - 3.0 High Intensity: 2.5 - 3.5 Blood 01/26/2024 9:57 AM CDT 01/26/2024 10:46 AM CDT Jessica Garza MD LABORATORY [facility] [place] [place] [facility] [address] [address] * PANEL HEPATIC FUNCTION (01/26/2024 9:57 AM CDT) Total Protein 6.9 6.4 - 8.3 g/dL [facility] [place] [place] [facility] Albumin 4.1 3.8 - 5.1 g/dL [facility] [place] [place] [facility] Bili Total 0.3 <=1.2 mg/dL [facility] [place] [place] [facility] Bili Direct <0.2 <=0.3 mg/dL [facility] [place] [place] [facility] Alk Phos 73 40 - 129 IU/L [facility] [place] [place] [facility] Comment:No reference range e stablished for patients <18 years old. ALT (SGPT) 36 <=41 IU/L [facility] [place] [place] [facility] AST(SGOT) 30 5 - 40 IU/L [facility] [place] [place] [facility] Blood 01/26/2024 9:57 AM CDT 01/26/2024 10:24 AM CDT Jessica Garza MD LABORATORY Performing Organization Address City/[facility]/ZIP Co de Phone Number [facility] [place] [place] [facility] [address] [address] * LACTATE (LACTIC ACID) (01/26/2024 9:57 AM CDT) Pathologist [facility] Lactate 1.7 0.7 - 2.1 mmol/L [facility] [place] [place] [facility] Blood 01/26/2024 9:57 AM CDT 01/26/2024 10:07 AM CDT Narrative [facility] [place] [place] [facility] - 01/26/2024 10:07 AM CDT Send specimen on ice! Jessica Garza MD LABORATORY [facility] [place] [place] [facility] [address] [address] * (ABNORMAL) BLOOD GASES (01/26/2024 9:57 AM CDT) PH Reyes 7.32 7.32 - 7.42 [facility] [place] [place] [facility] PCO2 Reyes 55(H) 41 - 51 mmHG [facility] [place] [place] [facility] PO2 Reyes 26 25 - 40 mmHG [facility] [place] [place] [facility] Bicarb Reyes 27 24 - 28 mEq/L [facility] [place] [place] [facility] O2 Sat Reyes 37 % [facility] [place] [place] [facility] Base Exc Reyes -1.3 -10.0 - 2.0 mmol/L [facility] [place] [place] [facility] Blood Venous 01/26/2024 9:57 AM CDT 01/26/2024 10:07 AM CDT Jessica Garza MD LABORATORY Performing Organization Address City/[facility] Co de Phone Number [facility] [place] [place] [facility] [address] [address] * FIBRINOGEN (01/26/2024 9:57 AM CDT) Fibrinogen 298 200 - 400 mg/dL [facility] [place] [place] [facility] Blood 01/26/2024 9:57 AM CDT 01/26/2024 10:46 AM CDT Jessica Garza MD LABORATORY Performing Organization Address City/[facility] Co de Phone Number [facility] [place] [place] [facility] [address] [address] * ETHANOL (ETOH) LEVEL, BLOOD (01/26/2024 9:57 AM CDT) Ethanol Negative Negative g/dL [facility] [place] [place] [facility] Blood 01/26/2024 9:57 AM CDT 01/26/2024 10:23 AM CDT Jessica Garza MD LABORATORY Performing Organization Address City/[facility]/ZIP Co de Phone Number [facility] [place] [place] [facility] [address] [address] * PTT (APTT) (01/26/2024 9:57 AM CDT) APTT 28.2 25.0 - 37.0 sec [facility] [place] [place] [facility] Blood 01/26/2024 9:57 AM CDT 01/26/2024 10:46 AM CDT Jessica Garza MD LABORATORY [facility] [place] [place] [facility] [address] [address] * ED US CRITICAL CARE (01/26/2024 9:56 AM CDT) Anatomical Region Laterality Modality Ultrasound Narrative 01/26/2024 3:34 PM CDT ED Trauma eFAST Ultrasound Indications: Blunt Trauma, Suspicion of Abdomen Fluid/Blood, Suspicion of Pneumothorax/Hemothorax, and Other general symptoms and signs Window: Cardiac Window, Heptorenal Window, Perisplenic Window, Pelvic Window, and Thoracic Window Findings: No Pericardial Effusion identified, No Free Intraperitoneal Fluid identified, No Pleural Effusion identified, and Lung Sliding Present Bilaterally Impression: No Pericardial Effusion identified, No Free Intraperitoneal Fluid identified, No Pleural Effusion identified, and No Pneumothorax Identified Alexsandra Arias MD, 01/26/2024 10:10 AM ED Attending Ultrasound Note: I have personally reviewed the image(s) and initial interpretation, and I agree with the findings as documented. Jessica Garza MD, 01/26/2024 3:30 PM Jessica Garza MD RAD ED ULT * PRECAUTIONARY TUBE (01/26/2024 9:51 AM CDT) Pathologist [facility] Prec Tube Precautionary Blood Bank Specimen Received. [facility] [place] [place] [facility] Blood 01/26/2024 9:51 AM CDT 01/26/2024 10:27 AM CDT Jessica Garza MD LAB TRANSFUSION SER VICES [facility] [place] [place] [facility] [address] [address] * ANTIBODY SCREEN (01/26/2024 9:51 AM CDT) Magalie Screen Negative [facility] [place] [place] [facility] Blood 01/26/2024 9:51 AM CDT 01/26/2024 11:59 AM CDT Jessica Garza MD LAB TRANSFUSION SER VICES Performing Organization Address City/[facility]/ZIP Co de Phone Number [facility] [place] [place] [facility] [address] [address] * BLOOD TYPING-ABO/RH (01/26/2024 9:51 AM CDT) ABORHG B POS [facility] [place] [place] [facility] Blood 01/26/2024 9:51 AM CDT 01/26/2024 11:59 AM CDT Jessica Garza MD LAB TRANSFUSION SER VICES Performing Organization Address [facility] Co de Phone Number [facility] [place] [place] [facility] [address] [address] * XR UPPER EXTREMITY OUTSIDE FILMS (01/26/2024 6:54 AM CDT) Only the most recent of3 resultswithin the time period is included. Narrative User, [email or web address] - 01/26/2024 10:39 AM CDT Outside Film Only Outside Provider RAD OUTSIDE FILMS from Last 3 Months Advance Directives For more information, please contact: [phone] * Full Code (Latest Code Status on File) Date Activated Date Inactivated Comments 01/26/2024 7:36 PM 01/27/2024 8:04 PM Question Answer Comments Does the Patient have prefer ences regarding life sustaining measures (these options only apply when the patient has a pulse): No Discussed Code Status With Whom? Not discussed Care Teams Director Workforce Management Relationship Specialty Start Date End Date Donna Baker MD [address] [place] [id number] Orthopedics 02/04/24
--- OUTSIDE RECORDS SUMMARY | 2024-02-11 13:19 | XMS_ITS | Encounter Summary ---
Author Organization [facility] Address [address] [place] [id number] Phone Care Team Providers Care Provider Service Representative Name Role Phone Donna Baker MD Unavailable [phone] Reason for Visit * Reason Comments Suture Removal Encounter Details Date Type Department Care Team (Late st Contact Info) Description 02/10/2024 1:00 PM CDT Nurse Only [facility] [address] [phone] Vivek Shin MD [address] [phone] Discharge Disposition: Discharged to home or self care Social History Tobacco Use Types Packs/Day Years Used Date Smoking Tobacco: Never Assessed Sex and Gender Information Value Date Recorded Sex Assigned at Not on file Gender Identity Not on file Sexual Orientation Not on file documented as of this encounter Progress Notes * Laurence Lynne RN - 02/10/2024 1:00 PM CDT Images from the original note were not included. Surgery Clinic Suture/Staple Removal Data: Shadi Robles Patient here for suture (s) removal. DOS: 01/26/24 Assessment: Signs of Infection:No Edges approximated: yes Site cleansed with: Sea Clens Response: suture (s) removed without difficulty. All Sutures removed: yes Site cleansed post removal. Patient tolerated procedure: yes Dressing:No Plan: Pt instructions: Do not soak or scrub suture site, can shower 24 hours post removal. If Steri Strips placed- leave in place until it falls off on its own. Pt will follow up per Laurence Ibarra, RN, 02/10/2024 1:46 PM documented in this encounter Plan of Treatment Upcoming Encounters Date Type Department Care Team (Late st Contact Info) Description 02/12/2024 11:00 AM CDT Hospital Encounter [facility] Occupational Therapy [address] [place] [phone] 03/14/2024 11:15 AM GIFT PACKER Appointment [facility] X[facility] [address] [place] [phone] Kenisha Banuelos, PANorbertoC [address] [place] [phone] Scheduled Discharge Disposition: Discharged to home or self care 03/14/2024 11:40 AM GIFT PACKER Office Visit [facility] Orthopedic Clinic [address] [place] [phone] Donna Baker MD [address] [address] Scheduled Discharge Disposition: Discharged to home or self care documented as of this encounter Visit Diagnoses Not on filedocumented in this encounter Care Teams Provider Service Representative Relationship Specialty Start Date End Date Donna Baker MD [address] [place] [phone] Orthopedics 02/04/24 documented as of this encounter
--- OUTSIDE RECORDS SUMMARY | 2024-02-11 13:19 | XMS_ITS | Encounter Summary ---
Author Organization [facility] [place] Address [address] [place] [address] Phone Care Team Providers Care Manager [employer] Name Role Phone Donna Baker MD Unavailable [phone] Encounter Details Date Type Department Care Team (Latest Contact Info) Description 02/10/2024 Travel Social History Tobacco Use Types Packs/Day Years Used Date Smoking Tobacco: Never Assessed Sex and Gender Information Value Date Recorded Sex Assigned at Not on file Gender Identity Not on file Sexual Orientation Not on file documented as of this encounter Plan of Treatment Upcoming Encounters Date Type Department Care Team (Late st Contact Info) Description 02/12/2024 11:00 AM CDT Hospital Encounter [facility] Occupational Therapy [address] [place] [address] 03/14/2024 11:15 AM RADIOGRAPHIC TECHNOLOGIST Appointment [facility] [address] [place] [address] Kenisha Banuelos PA-C [address] [place] [phone] Scheduled Discharge Disposition: Discharged to home or self care 03/14/2024 11:40 AM RADIOGRAPHIC TECHNOLOGIST Office Visit [facility] Orth[facility] Clinic [address] [place] [address] Donna Baker MD [address] [address] Scheduled Discharge Disposition: Discharged to home or self care documented as of this encounter Visit Diagnoses Not on filedocumented in this encounter Care Teams Manager [employer] Relationship Specialty Start Date End Date Donna Baker MD [address] [address] Orthopedics 02/04/24 documented as of this encounter
--- OUTSIDE RECORDS SUMMARY | 2024-02-11 13:19 | XMS_ITS | Encounter Summary ---
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 Until Thu01/29/24 at 1305 1231 (Given - Provid er: Clinton Chatterjee MD) Linked Groups Order Group 1: ondansetron (ZOFRAN) 4 mg/2 mL injection 4 mgJump to med 4 mg, IV Push, PACU PRN Q5MIN, 2 doses, Starting on Thu01/29/24 at 1244, Until Thu01/29/24 at 1835, Nausea/Vomiting (Use First) Or ondansetron (ZOFRAN ODT) disintegrating tablet 4 mgJump to med 4 mg, Oral, PACU PRN Q5MIN, 2 doses, Starting on Thu01/29/24 at 1244, Until Thu01/29/24 at 1835, Nausea/Vomiting (Use First) Group 2: ondansetron (ZOFRAN) 4 mg/2 mL injection 4 mgJump to med 4 mg, IV Push, PHASE II PRN Q5MIN, 2 doses, Starting on Thu01/29/24 at 1244, Until Thu01/29/24 at 1835, Nausea/Vomiting (Use First) Or ondansetron (ZOFRAN ODT) disintegrating tablet 4 mgJump to med 4 mg, Oral, PHASE II PRN Q5MIN, 2 doses, Starting on Thu01/29/24 at 1244, Until Thu01/29/24 at 1835, Nausea/Vomiting (Use First) documented in this encounter
--- OUTSIDE RECORDS SUMMARY | 2024-02-11 13:19 | XMS_ITS | Encounter Summary ---
Author Organization [facility] Address [address] [place] [phone] Phone Care Team Providers Care Heavy Equipment Operator/Paver Name Role Phone Donna Baker MD Unavailable Reason for Visit * Reason Comments Form - Disability [facility] / Attending Claudy dueñas Statement Encounter Details Date Type Department Care Team (Late st Contact Info) Description 02/09/2024 Documentation Only [facility] [address] [id number] Donna Baker MD [address] [id number] Form - Disability ([facility] / Attending Physician Statement ) Social History Tobacco Use Types Packs/Day Years Used Date Smoking Tobacco: Never Assessed Sex and Gender Information Value Date Recorded Sex Assigned at Not on file Gender Identity Not on file Sexual Orientation Not on file documented as of this encounter Progress Notes * Radha Young - 02/09/2024 8:06 AM CDT Form: [facility] / Attending Physician Statement Provider: Dr. Donna Baker Date Arrived: 02/08/24 Arrival Method: Delivered Date delivered to provider: 02/08/24 Due Date: 02/15/24 Completed Form Instructions: Fax when completed to [facility] at [phone]. * Radha Young - 02/09/2024 8:06 AM CDT Date Completed: Forms faxed by KAVIN Beyer on 02/08/24 to [facility] at . Forms completed & delivered per request as documented. Radha Young, 02/09/2024 8:18 AM 02/09/2024 documented in this encounter Plan of Treatment Upcoming Encounters Date Type Department Care Team (Late st Contact Info) Description 02/12/2024 11:00 AM CDT Hospital En[facility] [address] [place] [phone] 03/14/2024 11:15 AM MEDIA SUPERVISOR [facility]ointment [facility] [address] [place] [phone] Kenisha Banuelos, PANorbertoC [address] [phone] Scheduled Discharge Disposition: Discharged to home or self care 03/14/2024 11:40 AM MEDIA SUPERVISOR Office Visit [facility] [address] [place] [phone] Donna Baker MD [address] [phone] Scheduled Discharge Disposition: Discharged to home or self care documented as of this encounter Visit Diagnoses Not on filedocumented in this encounter Care Teams Heavy Equipment Operator/Paver Relationship Specialty Start Date End Date Donna Baker MD [address] [place] [id number] Orthopedics 02/04/24 documented as of this encounter
--- OUTSIDE RECORDS SUMMARY | 2024-02-11 13:19 | XMS_ITS | Clinical Summary ---
Author Organization [facility] Address [address] [place] [phone] Phone Care Team Providers Care Server Engineer Name Role Phone Donna Baker MD Unavailable [phone] Source Comments Results Scorecard is fully rolled out on [employer]. Last update 09/15/08.M[employer] Allergies No known active allergies Medications * [...] or Moderate Pain. 100 each 01/27/2024 02/11/20 Discontinued(Reo rder) oxyCODONE (ROXICODONE) 5 mg oral tablet Take 1-2 tablets (5-10 mg) by mouth every 4 hours as needed for Pain. 20 tablet 01/27/2024 01/29/20 24 Discontinued oxyCODONE (ROXICODONE) 5 mg oral tablet Take 1-2 tablets (5-10 mg) by mouth every 4 hours as needed for Pain (Severe). 10 tablet 01/29/2024 02/01/20 Active Problems Problem Noted Date Diagnosed Date Humeral head fracture, left, closed, initial enc ounter 01/26/2024 Left elbow fracture, open, initial encounter Encounters Date Type Department Care Team Description 02/11/2024 9:40 AM CDT [facility] [address] [place] [phone] Kenisha Banuelos PA-C Arrived 02/11/2024 9:00 AM CDT [facility] [address] [place] [phone] Kenisha Banuelos PA-C Left elbow fracture, open, initial encounter (Primary Dx) Discharge Disposition: Discharged to home or self care 02/11/2024 Travel 02/10/2024 1:00 PM CDT Nurse Only [facility] [address] [place] [phone] Vivek Shin MD Discharge Disposition: Discharged to home or self care 02/10/2024 Travel 02/09/2024 Documentation Only [facility] [address] [place] [phone] Donna Baker MD Form - Disability (Unum / Attending Physician Statement ) 01/29/2024 7:30 AM CDT - 01/29/2024 11:07 AM CDT Surgery OR G1 [address] [place] [phone] Donna Baker MD ORIF distal humerus 01/29/2024 7:19 AM CDT Anesthesia Event OR G1 [address] [place] [address] Montrell Frias MD Jensen, Anitra Russ MD 01/29/2024 5:38 AM CDT - 01/29/2024 3:35 PM CDT Hospital Encounter PACU G1 [address] [place] [address] Donna Baker MD Left elbow fracture, open, initial encounter Discharge Disposition: Discharged to home or self care 01/27/2024 [facility] [place] [phone] Vivek Quevedo, 01/26/2024 5:30 PM CDT Anesthesia Event OR P4 [address] [place] [address] Bryce Ludwig MD Ahinful, Jana P, RN 01/26/2024 4:08 PM CDT - 01/26/2024 5:46 PM CDT Surgery OR P4 [address] [place] [address] Basil Sanz MD IRRIGATION & DEBRIDEMENT ELBOW 01/26/2024 9:55 AM CDT - 01/27/2024 5:04 PM CDT Emergency [facility] Orthopaedic [address] [place] [address] Jessica Garza MD Gayken, Jon R, MD Pepin, Daina Del Rio MD Humeral head fracture, left, closed, initial encounter Discharge Disposition: Discharged to home or self care 01/26/2024 Orders Only [facility] Film Room [facility] Radiology Department [facility] 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 Appointment [facility] [address] [place] [phone] Kenisha Banuelos, PANorbertoC [address] [phone] Scheduled Discharge Disposition: Discharged to home or self care 03/14/2024 11:40 AM F[facility] [facility] [address] [place] [address] Donna Baker MD [address] [address] Scheduled Discharge Disposition: Discharged to home or self care Health Maintenance Due Date Last Done Comments Dental Oral Exam 1998 Dental Prophylaxis 1998 Dental X-Ray: Bitewings 1998 Imm: COVID-19 (#1) 08/30/2003 Imm: Pneumonia Peds or At-Risk less than 65 years (1 of 2 - PCV) 2004 Periodontal Maintenance 2012 HIV Screening 2013 Imm: HPV (1 - Male 3-dose series) 2013 PREVENTATIVE VISIT 2016 HEALTH MAINTENANCE PROTOCOL 2017 Imm: Zoster (1 of 2) 2017 Imm: Flu (#1) 12/13/2023 Imm: DTaP/Tdap (8 - Td or Tdap) 01/25/2034 01/26/2024, 12/09/2010, 02/01/2003, Additional history exists Imm: Hib Aged Out 12/26/1999, 11/14/1999 No lo nger eligible based on patient's age to complete this topic Imm: HepB Completed 09/23/2000, 12/12, 11/14/1999, Additional history exists Imm: HepA Completed 12/09/2010, 05/24/2010 Imm: Meningitis Aged Out No longer el igible based on patient's age to complete this topic Medical Devices Implanted Type Area Shift Supervisor Melting Device Identifier Shelf Expiration Date Model / Serial / Lot 3.5 Corkscrew Ar-5sf Implanted:Qty: 1 on 01/29/2024 by Donna Baker MD at [facility] [place] Left: Elbow [employer] 01/11/2028 [id number] / / [id number] 12-Hole [id number]-Lem12 Implanted:Qty: 1 on 01/29/2024 by Donna Baker MD at [facility] Plate Left: Elbow [employer] [id number] / / 18mm 30-0260 Implanted:Qty: 1 on 01/29/2024 by Donna Baker MD at [facility] Plate Left: Elbow [employer] 30-0260 / / Standard 5-Hole L 70-0304 Implanted:Qty: 1 on 01/29/2024 by Donna Baker MD at [facility] Plate Left: Elbow [employer] 70-0304 / / 18mm 30-0329 Implanted:Qty: 2 on 01/29/2024 by Donna Baker MD at [facility] Screw/[place] Left: Elbow [employer] 30-0329 / / 20mm 30-0330 Implanted:Qty: 1 on 01/29/2024 by Donna Baker MD at [facility] Screw/[place] Left: Elbow [employer] 30-0330 / / 45mm 30-0295 Implanted:Qty: 1 on 01/29/2024 by Donna Baker MD at [facility] Screw/[place] Left: Elbow [employer] 30-0295 / / 24mm 30-0263 Implanted:Qty: 2 on 01/29/2024 by Donna Baker MD at [facility] Screw/[place] Left: Elbow [employer] 30-0263 / / 30mm 30-0266 Implanted:Qty: 2 on 01/29/2024 by Donna Baker MD at [facility] Screw/[place] Left: Elbow [employer] 30-0266 / / 45mm 30-0272 Implanted:Qty: 1 on 01/29/2024 by Donna Baker MD at [facility] Screw/[place] Left: Elbow [employer] 30-0272 / / 50mm 30-0273 Implanted:Qty: 1 on 01/29/2024 by Donna Baker MD at [facility] Screw/[place] Left: Elbow [employer] 30-0273 / / 20mm 30-0261 Implanted:Qty: 1 on 01/29/2024 by Donna Baker MD at [facility] Screw/[place] Left: Elbow [employer] 30-0261 / / 22mm 30-0262 Implanted:Qty: 1 on 01/29/2024 by Donna Baker MD at [facility] Screw/[place] Left: Elbow [employer] 30-0262 / / 3.5 X 65 Mm Va Lkh Screw Implanted:Qty: 1 on 01/29/2024 by Donna Baker MD at [facility] Left: Elbow [employer] [id number] / / 3.5 X 42 Mm Va Lkh Screw Implanted:Qty: 1 on 01/29/2024 by Donna Baker MD at [facility] Left: Elbow [employer] [id number] / / 3.5 X 10 Mm Va Lkh Screw Implanted:Qty: 1 on 01/29/2024 by Donna Baker MD at [facility] Left: Elbow [employer] [id number] / / Axoguard Nerve Protector 3 X 6 Implanted:Qty: 1 on 01/29/2024 by Donna Baker MD at [facility] Left: Elbow [employer] 01/06/2025 [id number] / / [id number] Procedures Procedure Name Priority Date/Time Associated Diagnosis [...] Routine 01/29/2024 8:04 AM CDT PC NEED FACILITATOR REVIEW Urgent (< 48 hrs) 01/29/2024 7:04 [...] Routine 01/26/2024 6:40 PM CDT PC NEED FACILITATOR REVIEW Urgent (< 48 hrs) 01/26/2024 5:20 [...] alignment Reading Radiologist: Basil Elias Kenisha Banuelos PA-C RAD XRAY * XR ELBOW LEFT 2 [...] Radiologist: Dg Negrete Reading Resident: Danny Mooney Narrative 01/29/2024 1:21 PM [...] and clear Preoxygenation: mask Device Device used: Clinicient Supporting device: ?? Blade size: 2 The [...] unchanged and oral mucosa unchanged Performed by: BAKER HELPER: Rodrigue Elias APRN, CRNA Additional Notes Ramp used Events Anesthesia start: 01/29/2024 7:19 AM Intubation time: 01/29/2024 7:36 AM Montrell Frias MD PROCEDURES * PF INJECT ANESTHETIC/STEROID, BRACHIAL PLEXUS W/IMG GDN, PF SONO GUIDE NEEDLE BIOPSY (01/29/2024 8:04 AM CDT) Narrative Montrell Frias MD - 01/29/2024 8:04 AM CDT Montrell Frias MD ? 01/29/2024 ??8:05 AM NERVE BLOCK PROCEDURE ?? supraclavicular (Type: At surgeon's request for post-op analgesia) Laterality: left Prep: ChloraPrep Patient Position: Sitting Beaver Precautions Completed: patient identified, site marked, surgical consent, pre-op evaluation, timeout performed, IV checked, risks and benefits discussed and monitors and equipment checked Medications bupivacaine 0.25%-EPINEPHrine (1:200,000) 0.25% (1:678072) injection - Block 30 mL - 01/29/2024 [...] ? no bleeding at site Performed by: BAKER HELPER:Anesthesiologist: Montrell Frias MD Montrell Frias MD PROCEDURES * POC GLUCOSE (01/29/2024 6:28 AM CDT) Only the most recent of4 resultswithin the time period is included. POC Glucose 86 70 - 100 mg/dL [facility] - POINT OF CARE Blood 01/29/2024 6:28 AM CDT Donna Baker MD LABORATORY Performing Organization Address [facility] Co de Phone Number [facility] POINT OF CARE [address] [place] [phone], * (ABNORMAL) PANEL BASIC METABOLIC (BMP) (01/27/2024 5:22 AM CDT) CO2 24 22 - 30 mmol/L [facility] Glucose 121(H) 70 - 100 mg/dL [facility] BUN 10 6 - 20 mg/dL [facility] Creatinine 0.79 0.70 - 1.25 mg/dL [facility] Calcium 8.5(L) 8.6 - 10.0 mg/dL [facility] Sodium 137 135 - 148 mmol/L [facility] Potassium 4.4 3.5 - 5.3 mmol/L [facility] Chloride 104 92 - 108 mmol/L [facility] eGFR (2020 CKD-EPI) >120 >=60 ml/min/1.7 3m2 [facility] Comment: The estimated glomerular filtration rate (eGFR) was calculated using the CKD-EPI 2020 creatinine equation, which does not include race as a factor. This equation is validated in individuals 18 years of age and older, and eGFR is normalized to a body surface area of 1.73m^2. AnGap 9 8 - 16 mmol/L [facility] Blood 01/27/2024 5:22 AM CDT 01/27/2024 6:21 AM CDT Jessica Garza MD LABORATORY [facility] [address] [place] [phone] * (ABNORMAL) GLYCOSYLATED HGB - A1C (01/27/2024 5:22 AM CDT) Hemoglobin A1C 5.8(H) 4.0 - 5.6 % [facility] Comment: Increased risk for diabetes (prediabetes): [...] Average Glucose 120(H) 68 - 114 mg/dL [facility] Comment: The estimated Average Glucose (eAG) was calculated using an equation derived from a study of 507 adults with type 1, type 2, or no diabetes. Minority populations were underrepresented and children were not included. The eAG is not equivalent to a fasting glucose concentration. Blood 01/27/2024 5:22 AM CDT 01/27/2024 12:35 PM CDT Eric Anthony MD LABORATORY Performing Organization Address City/[facility]/ZIP Co de Phone Number [facility] [address] [address] * (ABNORMAL) CBC WITH PLATELET (01/27/2024 5:22 AM CDT) [facility] WBC 5.77 4.00 - 10.00 k/cmm [facility] RBC 4.56(L) 4.60 - 6.00 m/cmm [facility] Hgb 13.3 13.1 - 17.5 g/dL [facility] Hematocrit 40.6 40.0 - 51.0 % [facility] MCV 89.0 80.0 - 100.0 fL [facility] MCH 29.2 25.0 - 32.0 pg [facility] MCHC 32.8 31.0 - 36.0 g/dL [facility] RDW 12.9 11.5 - 14.5 % [facility] Plt 170 150 - 400 k/cmm [facility] MPV 12.1 6.5 - 12.5 fL [facility] Blood 01/27/2024 5:22 AM CDT 01/27/2024 6:20 AM CDT Jessica Garza MD LABORATORY Performing Organization Address [facility]/ZIP Co de Phone Number [facility] [address] [phone] * XR SHOULDER LT 2/3V AP/GRASH/Y* (01/26/2024 [...] of the shoulder articulations. Procedure Note Dg Negreet, DO - 01/26/2024 Technique: XR SHOULDER LT [...] and intramuscular gas. Reading Radiologist: Dg Negrete 01/26/2024 9:15 PM CDT Comparison: Radiograph, 01/26/2024 [...] intact. Joint effusion. Procedure Note Dg Negrete, DO - 01/26/2024 Comparison: Radiograph, 01/26/2024 Indication: intra-articular [...] nerve damage, pain, unsuccessful block and swelling Beaver protocol: ??Patient identity confirmed: ??Verbally with patient, [...] wound healing, poor cosmetic result and pain Beaver protocol: ??Patient identity confirmed: ??Verbally with patient, [...] of the admitting trauma surgery service by iGlue message at 1315 hours on 01/26/[address] Stark. I have personally reviewed the image(s) and initial interpretation, and I agree with the findings as documented by the resident/fellow. Reading Radiologist: Phu Stark Reading Resident: Christian Escobar Narrative 01/26/2024 1:08 PM CDT Indication: ??Patient transferred from [facility] due to Trauma. ??Dr. ??JESSICA GARZA requested an interpretation by me. Technique: ??CT scan of the chest/abdomen/pelvis done on 01/26/2024 with IV contrast. ??3 mm axial, sagittal and coronal reconstructions reviewed in soft tissue and bone windows, per the local institution's scanning protocols, which may differ from the [facility] trauma protocols. Findings: Chest: Lungs: No lung [...] Mild bilateral gynecomastia. Procedure Note Phu Stark, DO - 01/26/2024 Indication: Patient transferred from [facility] due to Trauma.Dr. JESSICA GARZA requested an interpretation by me. Technique: CT scan of the chest/abdomen/pelvis done on 01/26/2024 with IVcontrast. 3 mm axial, sagittal and coronal reconstructions reviewed insoft tissue and bone windows, per the local institution's scanningprotocols, which may differ from the [facility] trauma protocols. Findings: Chest: Lungs: No lung [...] Alvarez of the admitting traumasurgery service by iGlue message at 1315 hours on 01/26/2024 by . I have personally reviewed the image(s) and initial interpretation, and Iagree with the findings as documented by the resident/fellow. Reading Radiologist: Phu Stark Reading Resident: Christian Escobar Jessica Garza MD RAD [...] 11:01 AM CDT Indication: ??Patient transferred from [facility] due to Trauma. ??No initial report accompanied the patient and/or Dr. ??JESSICA GARZA requested an interpretation by me. Technique: ??CT scan of the cervical spine done on 01/26/2024 without IV contrast. ??3 mm axial, sagittal and coronal reconstructions reviewed in soft tissue and bone windows, per the local institution's scanning protocols, which may differ from the [facility] trauma protocols. Findings: ?? The lateral masses [...] MD - 01/26/2024 Indication: Patient transferred from [facility] due to Trauma.No initial report accompanied the patient and/or Dr. JESSICA COSTELLORrequested an interpretation by me. Technique: CT scan of the cervical spine done on 01/26/2024 without IVcontrast. 3 mm axial, sagittal and coronal reconstructions reviewed insoft tissue and bone windows, per the local institution's scanningprotocols, which may differ from the [facility] trauma protocols. Findings: The lateral masses of [...] 11:04 AM CDT Indication: ??Patient transferred from [facility] due to Trauma. ??No initial report accompanied the patient and/or Dr. ??JESSICA GARZA requested an interpretation by me. Technique: ??CT scan of the head done on 01/26/2024 without IV contrast. ??3 mm axial and coronal reconstructions reviewed in soft tissue and bone windows, per the local institution's scanning protocols, which may differ from the [facility] trauma protocols. Findings: There is no evidence [...] MD - 01/26/2024 Indication: Patient transferred from [facility] due to Trauma.No initial report accompanied the patient and/or Dr. JESSICA COSTELLORrequested an interpretation by me. Technique: CT scan of the head done on 01/26/2024 without IV contrast. 3mm axial and coronal reconstructions reviewed in soft tissue and bonewindows, per the local institution's scanning protocols, which may differfrom the [facility] trauma protocols. Findings: There is no evidence [...] Reading Radiologist: Sulaiman Sanchez Resident: Lissette Bernabe Jessica Garza MD RAD CT NEURO * ED INR (01/26/2024 9:57 AM CDT) ED INR 1.1 0.8 - 1.1 [facility] Comment: Warfarin Therapeutic Range: Standard Intensity: 2.0 - 3.0 High Intensity: 2.5 - 3.5 This is a rapid INR screening test which uses whole blood; results may infrequently differ from plasma INR results. If medication adjustments/dosing are required a PT/INR test ([id number]) should be ordered and performed in the main laboratory. Blood 01/26/2024 9:57 AM CDT 01/26/2024 10:04 AM CDT Jessica Garza MD LABORATORY [facility] [address] [place] [address] * EXTRA TUBE - SST (01/26/2024 9:57 AM CDT) SST TUBE Stored [facility] Comment:SST tubes (Serum Sep arator) are stored in the lab for 3 days from the collection date. Blood 01/26/2024 9:57 AM CDT 01/26/2024 10:06 AM CDT Jessica Garza MD LABORATORY Performing Organization Address City/[facility]/ZIP Co de Phone Number [facility] [address] [address] * HS TROPONIN (01/26/2024 9:57 AM CDT) Pathologist [facility] HS Troponin I <3 <=35 ng/L [facility] Blood 01/26/2024 9:57 AM CDT 01/26/2024 10:04 AM CDT Narrative [facility] - 01/26/2024 10:35 AM CDT First Occurrence of the Troponin order is to be drawn Stat by Nursing staff on the unit. Jessica Garza MD LABORATORY Performing Organization Address [facility] Co de Phone Number [facility] [address] [address] * (ABNORMAL) ED CHEMISTRY LABS(NA,K,CL,CO2,GLU,CREAT,CA-IONIZED,ANION GAP) (01/26/2024 9:57 AM CDT) [facility] Sodium 141 135 - 148 mmol/L [facility] Chloride 102 92 - 108 mmol/L [facility] AnGap 11 8 - 16 mmol/L [facility] Glucose 129(H) 70 - 100 mg/dL [facility] ICA, Actual 4.68 4.40 - 5.20 mg/dL [facility] ICA, pH Corrected 4.49 4.40 - 5.20 mg/dL [facility] Creatinine 0.99 0.70 - 1.25 mg/dL [facility] BICARB 27(H) 22 - 26 mEq/L [facility] eGFR (2020 CKD-EPI) 108 >=60 ml/min/1.7 3m2 [facility] Comment: The estimated glomerular filtration rate (eGFR) was calculated using the CKD-EPI 2020 creatinine equation, which does not include race as a factor. This equation is validated in individuals 18 years of age and older, and eGFR is normalized to a body surface area of 1.73m^2. Potassium 4.4 3.5 - 5.3 mmol/L [facility] Blood 01/26/2024 9:57 AM CDT 01/26/2024 10:07 AM CDT Jessica Garza MD LABORATORY [facility] [address] [place] [phone] * (ABNORMAL) CBC WITH PLTS/AUTO DIFF (01/26/2024 9:57 AM CDT) WBC 17.97(H) 4.00 - 10.00 k/cmm [facility] RBC 5.31 4.60 - 6.00 m/cmm [facility] Hgb 15.4 13.1 - 17.5 g/dL [facility] Hematocrit 47.8 40.0 - 51.0 % [facility] MCV 90.0 80.0 - 100.0 fL [facility] MCH 29.0 25.0 - 32.0 pg [facility] MCHC 32.2 31.0 - 36.0 g/dL [facility] RDW 12.6 11.5 - 14.5 % [facility] Plt 250 150 - 400 k/cmm [facility] MPV 10.7 6.5 - 12.5 fL [facility] Automated Abs Neutrophil 15.71(H) 1.70 - 6.50 k/cmm [facility] Comment:Preliminary ANC, Fin al Result to Follow Abs Immature Granulocyte 0.08 0.00 - 0.09 k/cmm [facility] Comment:The Immature Granulo cyte Absolute count contains metamyelocytes and myelocytes. Abs Neutrophil 15.71(H) 1.70 - 6.50 k/cmm [facility] Abs Lymphocyte 1.01 0.80 - 4.00 k/cmm [facility] Abs Monocyte 1.15(H) 0.20 - 1.00 k/cmm [facility] Abs Eosinophil 0.00 0.00 - 0.60 k/cmm [facility] Abs Basophil 0.02 0.00 - 0.20 k/cmm [facility] Blood 01/26/2024 9:57 AM CDT 01/26/2024 10:24 AM CDT Jessica Garza MD LABORATORY Performing Organization Address [facility] Co de Phone Number [facility] [address] [address] * ED HEMOGLOBIN TOTAL (ED ONLY) (01/26/2024 9:57 AM CDT) Hgb 15.8 13.1 - 17.5 g/dL [facility] Blood 01/26/2024 9:57 AM CDT 01/26/2024 10:07 AM CDT Jessica Garza MD LABORATORY Performing Organization Address [facility] Co de Phone Number [facility] [address] [address] * PROTHROMBIN (PT) & INR (01/26/2024 9:57 AM CDT) PT 11.6 9.0 - 12.5 sec [facility] INR 1.0 0.8 - 1.1 [facility] Comment: Warfarin Therapeutic Range: Standard Intensity: 2.0 - 3.0 High Intensity: 2.5 - 3.5 Blood 01/26/2024 9:57 AM CDT 01/26/2024 10:46 AM CDT Jessica Garza MD LABORATORY Performing Organization Address [facility] Co de Phone Number [facility] [address] [address] * PANEL HEPATIC FUNCTION (01/26/2024 9:57 AM CDT) Total Protein 6.9 6.4 - 8.3 g/dL [facility] Albumin 4.1 3.8 - 5.1 g/dL [facility] Bili Total 0.3 <=1.2 mg/dL [facility] Bili Direct <0.2 <=0.3 mg/dL [facility] Alk Phos 73 40 - 129 IU/L [facility] Comment:No reference range e stablished for patients <18 years old. ALT (SGPT) 36 <=41 IU/L [facility] AST(SGOT) 30 5 - 40 IU/L [facility] Blood 01/26/2024 9:57 AM CDT 01/26/2024 10:24 AM CDT Jessica Garza MD LABORATORY [facility] [address] [address] * LACTATE (LACTIC ACID) (01/26/2024 9:57 AM CDT) Pathologist [facility] Lactate 1.7 0.7 - 2.1 mmol/L [facility] Blood 01/26/2024 9:57 AM CDT 01/26/2024 10:07 AM CDT Narrative [facility] - 01/26/2024 10:07 AM CDT Send specimen on ice! Jessica Garza MD LABORATORY Performing Organization Address City/[facility]/ZIP Co de Phone Number [facility] [address] [address] * (ABNORMAL) BLOOD GASES (01/26/2024 9:57 AM CDT) [facility] PH Reyes 7.32 7.32 - 7.42 [facility] PCO2 Reyes 55(H) 41 - 51 mmHG [facility] PO2 Reyes 26 25 - 40 mmHG [facility] Bicarb Reyes 27 24 - 28 mEq/L [facility] O2 Sat Reyes 37 % [facility] Base Exc Reyes -1.3 -10.0 - 2.0 mmol/L [facility] Blood Venous 01/26/2024 9:57 AM CDT 01/26/2024 10:07 AM CDT Jessica Garza MD LABORATORY [facility] [address] [address] * FIBRINOGEN (01/26/2024 9:57 AM CDT) Fibrinogen 298 200 - 400 mg/dL [facility] Blood 01/26/2024 9:57 AM CDT 01/26/2024 10:46 AM CDT Jessica Garza MD LABORATORY Performing Organization Address [facility] de Phone Number [facility] [address] [address] * ETHANOL (ETOH) LEVEL, BLOOD (01/26/2024 9:57 AM CDT) Ethanol Negative Negative g/dL [facility] Blood 01/26/2024 9:57 AM CDT 01/26/2024 10:23 AM CDT Jessica Garza MD LABORATORY Performing Organization Address [facility] de Phone Number [address] [address] * PTT (APTT) (01/26/2024 9:57 AM CDT) APTT 28.2 25.0 - 37.0 sec [facility] Blood 01/26/2024 9:57 AM CDT 01/26/2024 10:46 AM CDT Jessica Garza MD LABORATORY Performing Organization Address [facility] Phone Number [address] [address] * ED US CRITICAL CARE (01/26/2024 9:56 [...] * PRECAUTIONARY TUBE (01/26/2024 9:51 AM CDT) Prec Tube Precautionary Blood Bank Specimen Received. [facility] Blood 01/26/2024 9:51 AM CDT 01/26/2024 10:27 AM CDT Jessica Garza MD LAB TRANSFUSION SER VICES Performing Organization Address City/[facility]/ZIP Co de Phone Number [facility] [place] [address] * ANTIBODY SCREEN (01/26/2024 9:51 AM CDT) Magalie Screen Negative [facility] Blood 01/26/2024 9:51 AM CDT 01/26/2024 11:59 AM CDT Jessica Garza MD LAB TRANSFUSION SER VICES Performing Organization Address City/[facility]/ZIP Co de Phone Number [facility] [place] [address] * BLOOD TYPING-ABO/RH (01/26/2024 9:51 AM CDT) ABORHG B POS [facility] Blood 01/26/2024 9:51 AM CDT 01/26/2024 11:59 AM CDT Jessica Garza MD LAB TRANSFUSION SER VICES [facility] [address] [place] [address] * XR UPPER EXTREMITY OUTSIDE FILMS (01/26/2024 6:54 AM CDT) Only the most recent of3 resultswithin the time period is included. Narrative User, [id number] - 01/26/2024 10:39 AM CDT Outside Film Only Outside Provider RAD OUTSIDE FILMS from Last 3 Months Advance Directives For more information, please contact: [phone] * Full Code (Latest Code Status on File) Date Activated Date Inactivated Comments 01/26/2024 7:36 PM 01/27/2024 8:04 PM Question Answer Comments Does the Patient have prefer ences regarding life sustaining measures (these options only apply when the patient has a pulse): No Discussed Code Status With Whom? Not discussed Care Teams Server Engineer Relationship Specialty Start Date End Date Donna Baker MD [address] [place] [id number] Orthopedics 02/04/24
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
--- OUTSIDE RECORDS SUMMARY | 2024-02-11 13:19 | XMS_ITS | Encounter Summary ---
Author Organization [facility] Address [address] [place] [address] Phone Care Team Providers Care Sole Tier Name Role Phone oDnna Baker MD Unavailable [phone] Reason for Referral * Consult/Test/Treat (Routine) - New Request Specialty Diagnoses / Procedures Referred By Contac t Referred To Contact Diagnoses Left elbow fracture, open, initial encounter Kenisha Banuelos PA-C [address] [phone] Provider, [place] [address] Referral ID Status Reason Start Date Expiration Date V isits Requested Visits Authorized [id number] New Request 02/11/2024 02/10/2025 1 1 * Consult/Test/Treat (Routine) - New Request Specialty Diagnoses / Procedures Referred By Contmariely t Referred To Contact Diagnoses Left elbow fracture, open, initial encounter Kenisha Banuelos PA-C [address] [address] Referral ID Status Reason Start Date Expiration Date V isits Requested Visits Authorized [id number] New Request 02/11/2024 02/10/2025 1 1 Reason for Visit * Reason Comments Post Op Left elbow Encounter Details Date Type Department Care Team (Late st Contact Info) Description 02/11/2024 9:00 AM CDT [facility] [address] [place] [address] Kenisha Banuelos PA-C [address] [address] Left elbow fracture, open, initial encounter (Primary Dx) Discharge Disposition: Discharged to home or self care Social History Tobacco Use Types Packs/Day Years Used Date Smoking Tobacco: Never Assessed Sex and Gender Information Value Date Recorded Sex Assigned at Not on file Gender Identity Not on file Sexual Orientation Not on file documented as of this encounter Patient Instructions * Patient Instructions* Kenisha Banuelos PA-C - 02/11/2024 9:00 AM CDT Wear brace other than hygiene Tylenol or ibuprofen as needed No lifting greater than 1-2 lbs Work on motion of the elbow Therapy was ordered for you. Please call [phone] to schedule therapy. The Therapy department is located on the 3rd floor of the [facility] Building. Follow up in one month documented in this encounter Plan of Treatment Upcoming Encounters Date Type Department Care Team (Late st Contact Info) Description 02/12/2024 11:00 AM CDT Hospital Encounter [facility] [address] [place] [address] 03/14/2024 11:15 AM GLUE LINE OPERATOR Appointment [facility] [address] [place] [address] Kenisha Banuelos PA-C [address] [address] Scheduled Discharge Disposition: Discharged to home or self care 03/14/2024 11:40 AM GLUE LINE OPERATOR [facility] [address] [address] Donna Baker MD [address] [place] [address] Scheduled Discharge Disposition: Discharged to home or self care Scheduled Orders Name Type Priority Associated Diagnoses Orde r Schedule XR ELBOW LEFT 3/4 VIEWS* Imaging Routine Left elbow fracture, open, initial encounter Expected: 02/11/2024, Expires: 04/12/2025 Scheduled Referrals Name Type Priority Associated Diagnoses Orde r Schedule REFERRAL TO OCCUPATIONAL THERAPY Referral Routine Left elbow fracture, open, initial encounter Ordered: 02/11/2024 REFERRAL TO OCCUPATIONAL THERAPY Referral Routine Left elbow fracture, open, initial encounter Ordered: 02/11/2024 documented as of this encounter Results * XR ELBOW LEFT 3/4 VIEWS* [...] IMPRESSION Impression: Restored anatomic alignment Reading Radiologist: Elias, Basil C Kenisha Banuelos PA-C RAD XRAY documented in this encounter Visit Diagnoses Diagnosis Left elbow fracture, open, initial encounter- Primary Left elbow fracture, open, initial encounter documented in this encounter Care Teams Sole Tier Relationship Specialty Start Date End Date Donna Baker MD [address] [place] [address] Orthopedics 02/04/24 documented as of this encounter
--- OUTSIDE RECORDS SUMMARY | 2024-02-11 13:19 | XMS_ITS | Encounter Summary ---
Author Organization [facility] Address [address] [place] [address] Phone Care Team Providers Care Cellar Worker Name Role Phone Donna Baker MD Unavailable [phone] Encounter Details Date Type Department Care Team (Latest Contact Info) Description 02/11/2024 Travel Social History Tobacco Use Types Packs/Day [...] [facility]counter [facility] [address] [place] [address] 03/14/2024 11:15 AM CORPORATE GIVING MANAGER Appointment [facility] [address] [place] [address] Kenisha Banuelos PA-C [address] [place] [address] Scheduled Discharge Disposition: Discharged to home or self care 03/14/2024 11:40 AM CORPORATE GIVING MANAGER Office [facility] [address] [place] [address] Donna Baker MD [address] [address] Scheduled Discharge Disposition: Discharged to home or self care documented as of this encounter Visit Diagnoses Not on filedocumented in this encounter Care Teams Cellar Worker Relationship Specialty Start Date End Date Donna Baker MD [address] [address] Orthopedics 02/04/24 documented as of this encounter
--- OUTSIDE RECORDS SUMMARY | 2024-02-11 13:19 | XMS_ITS | Encounter Summary ---
Author Organization [facility] Address [address] [place] [address] Phone Care Team Providers Care Net Mvc Developer Name Role Phone Donna Baker MD Unavailable [phone] Encounter Details Date Type Department Care Team (Late st Contact Info) Description 02/11/2024 9:40 AM CDT Hospital Encounter [facility] [address] [place] [address] Kenisha Banuelos PA-C [address] [phone] Arrived Social History Tobacco Use Types Packs/Day Years Used Date Smoking Tobacco: Never Assessed Sex and Gender Information Value Date Recorded Sex Assigned at Not on file Gender Identity Not on file Sexual Orientation Not on file documented as of this encounter Plan of Treatment Upcoming Encounters Date Type Department Care Team (Late Contact Info) Description 02/12/2024 11:00 AM CDT Hospital Encounter [facility] [address] [place] [address] 03/14/2024 11:15 AM ORACLE SOFTWARE ENGINEER Appointment [facility] [address] [place] [address] Kenisha Banuelos PA-C [address] [address] Scheduled Discharge Disposition: Discharged to home or self care 03/14/2024 11:40 AM ORACLE SOFTWARE ENGINEER [facility] [address] [address] Donna Baker MD [address] [address] Scheduled Discharge Disposition: Discharged to home or self care documented as of this encounter Procedures Procedure Name Priority Date/Time Associated Diagnosis Comments XR ELBOW LEFT 3/4 VIEWS* Routine 02/11/2024 9:56 AM CDT Left elbow fracture, open, initial encounter documented in this encounter Results * XR ELBOW LEFT [...] Basil Elias Kenisha Banuelos PA-C RAD XRAY documented in this encounter Visit Diagnoses Diagnosis Left elbow fracture, open, initial encounter documented in this encounter Care Teams Net Mvc Developer Relationship Specialty Start Date End Date Donna Baker MD [address] [place] [address] Orthopedics 02/04/24 documented as of this encounter
--- OUTSIDE RECORDS SUMMARY | 2024-02-11 13:19 | XMS_ITS | Encounter Summary ---
Author Organization [facility] Address [address] [place] [address] Phone Care Team Providers Care Laboratory Technologist Name Role Phone Unavailable Primary Care Provider Unavailabl e Encounter Details Date Type Department Care Team (Late Contact Info) Description 01/27/2024 [facility] [place] [phone] Vivek Quevedo DO [address] [phone] Social History Tobacco Use Types Packs/Day Years [...] [facility] [address] [address] 03/14/2024 11:15 AM CALL CENTER COORDINATOR Appointment [facility] [address] [address] Kenisha Banuelos PA-C [address] [address] Scheduled Discharge Disposition: Discharged to home or self care 03/14/2024 11:40 AM CALL CENTER COORDINATOR Office [facility] [address] [address] Donna Baker MD [address] [address] Scheduled Discharge Disposition: Discharged to home or self care documented as of this encounter Visit Diagnoses Not on filedocumented in this encounter
--- OUTSIDE RECORDS SUMMARY | 2024-02-11 13:20 | XMS_ITS | Encounter Summary ---
Author Organization [facility] Address [address] [place] [address] Phone Care Team Providers Care Health Insurance Sales Agent Name Role Phone Unavailable Primary Care Provider Unavailabl e Encounter Details Date Type Department Care Team (Latest Contact Info) Description 01/26/2024 Travel Social History Tobacco Use Types Packs/Day [...] Encounter [facility] [address] [place] [phone] 03/14/2024 11:15 AM POLITICAL CONSULTANT Appointment [facility] [address] [place] [address] Kenisha Banuelos PA-C [address] [phone] Scheduled Discharge Disposition: Discharged to home or self care 03/14/2024 11:40 AM POLITICAL CONSULTANT Office [facility] [address] [place] [address] Donna Baker MD [address] [address] Scheduled Discharge Disposition: Discharged to home or self care documented as of this encounter Visit Diagnoses Not on filedocumented in this encounter
--- OUTSIDE RECORDS SUMMARY | 2024-02-11 13:20 | XMS_ITS | Encounter Summary ---
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 Thu01/26/24 at 1335 1346 (Given - Provider: Kathryn Reeves RN) HYDROmorphone PF (DILAUDID) 1 mg/mL injection 0.5 mg (COMPLETED) 0.5 mg, IV Push, ONE TIME, 1 dose, On Thu01/26/24 at 1600 1611 (Given - Provider: Cat Monaco RN) HYDROmorphone PF (DILAUDID) 1 mg/mL injection 1 mg (COMPLETED) 1 mg, IV Push, ONE TIME, 1 dose, On Thu01/26/24 at 1015 1010 (Given - Provider: Geovanna Elizabeth RN) polyethylene glycol 3350 (MIRALAX;GLYCOLAX) packet 17 g 17 g, Oral, DAILY, First dose on Thu01/28/24 at 0800, Until Discontinued sennosides-docusate sodium (STOOL SOFTENER/LAXATIVE) 8.6-50 mg tablet 1 tablet 1 tablet, Oral, BID, First dose on Thu01/27/24 at 0800, Until Discontinued 0956 (Given - Provid er: Daniel Verdugo RN) VTE prophylaxis contraindicated(Linked Group 2) Contraindication Reason: Procedure, Does not apply, PROTOCOL, Starting on Thu01/26/24 at 1936, Until Thu01/27/24 at 2004 PRN Medication Order 01/25/2024 01/26/2024 01/27/2024 acetaminophen (TYLENOL) tablet 650 mg (CANCELED) 650 mg, Oral, Q4H PRN, Starting on Thu01/26/24 at 1936, Until Thu01/27/24 at 0757, Temp > 38.6 C, Mild Pain (Use First) 2125 (Given - Provider: Nugyen Barron RN) HYDROmorphone PF (DILAUDID) 1 mg/mL injection 0.4 mg (CANCELED) 0.4 mg, IV Push, PACU PRN Q5MIN, 5 doses, Starting on Thu01/26/24 at 1824, Until Thu01/26/24 at 1925, Severe Pain (Use First) 190 (Given - Provider: Kenisha Chamberlain RN) oxyCODONE (ROXICODONE) tablet 5-10 mg 5-10 mg, Oral, Q6H PRN, Starting on Thu01/27/24 at 0757, Until Thu01/27/24 at 2004, Moderate Pain (Use First) Linked Groups Order Group 1: [facility] REC REVIEW BY PHARMACYJump to med Discharge Date: 01/27/2024, Discharge Location: Home, Anticipated Discharge Time: 10 am - 2 pm, Discharge Medication Orders: DC Med Orders Final, Does not apply, PROTOCOL, Starting on Thu01/27/24 at 1155, Until Thu01/27/24 at 2003 And Discharge Med Rec Final Review by Pharmacy (COMPLETED) Routine, Order to be placed by provider after medications have been entered for discharge and are ready for review by Pharmacist. This order can be placed multiple times if changes or additions have been made to medications for discharge. Choose the Preliminary DC Med Rec review when placing orders prior to the day of discharge. Choose Final DC Med Rec when all medication changes have been entered. If DC Med Rec needed now, please page the Pharmacist covering the patient to inform them., Discharge Date: 01/27/2024, Discharge Location: Home, Anticipated Discharge Time: 10 am - 2 pm Group 2: VTE prophylaxis contraindicatedJump to med Contraindication Reason: Procedure, Does not apply, PROTOCOL, Starting on Thu01/26/24 at 1936, Until Thu01/27/24 at 2003 And VTE - Prophylaxis Contraindication Communication (COMPLETED) Contraindication Reason: Procedure documented in this encounter
--- OUTSIDE RECORDS SUMMARY | 2024-02-11 13:20 | XMS_ITS | Encounter Summary ---
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 laboratory. Blood 01/26/2024 9:57 AM CDT 01/26/2024 10:04 AM CDT Jessica Garza MD LABORATORY Performing Organization Address City/[facility] Co de Phone Number [facility] [address] [address] * LACTATE (LACTIC ACID) (01/26/2024 9:57 AM CDT) Lactate 1.7 0.7 - 2.1 mmol/L [facility] Blood 01/26/2024 9:57 AM CDT 01/26/2024 10:07 AM CDT Narrative [facility] - 01/26/2024 10:07 AM CDT Send specimen on ice! Jessica Garza MD LABORATORY Performing Organization Address [facility] Co de Phone Number [facility] [address] [address] * FIBRINOGEN (01/26/2024 9:57 AM CDT) Pathologist [facility] Fibrinogen 298 200 - 400 mg/dL [facility] Blood 01/26/2024 9:57 AM CDT 01/26/2024 10:46 AM CDT Jessica Garza MD LABORATORY Performing Organization Address [facility] Co de Phone Number [facility] [address] [address] * PANEL HEPATIC FUNCTION (01/26/2024 9:57 AM CDT) [facility] Total Protein 6.9 6.4 - 8.3 g/dL [facility] Albumin 4.1 3.8 - 5.1 g/dL [facility] Bili Total 0.3 <=1.2 mg/dL [facility] Bili Direct <0.2 <=0.3 mg/dL [facility] Alk Phos 73 40 - 129 IU/L [facility] Comment:No reference range e stablished for patients <18 years old. ALT (SGPT) 36 <=41 IU/L [facility] AST(SGOT) 30 5 - 40 IU/L [facility] Blood 01/26/2024 9:57 AM CDT 01/26/2024 10:24 AM CDT Jessica Garza MD LABORATORY Performing Organization Address [facility] Co de Phone Number [facility] [address] [address] * ED HEMOGLOBIN TOTAL (ED ONLY) (01/26/2024 9:57 AM CDT) Pathologist [facility] Hgb 15.8 13.1 - 17.5 g/dL [facility] Blood 01/26/2024 9:57 AM CDT 01/26/2024 10:07 AM CDT Jessica Garza MD LABORATORY Performing Organization Address [facility] Co de Phone Number [facility] [address] [address] * (ABNORMAL) ED CHEMISTRY LABS(NA,K,CL,CO2,GLU,CREAT,CA-IONIZED,ANION GAP) (01/26/2024 9:57 AM CDT) Pathologist [facility] Sodium 141 135 - 148 mmol/L [facility] Chloride 102 92 - 108 mmol/L [facility] AnGap 11 8 - 16 mmol/L [facility] Glucose 129(H) 70 - 100 mg/dL [facility] ICA, Actual 4.68 4.40 - 5.20 mg/dL [facility] ICA, pH Corrected 4.49 4.40 - 5.20 mg/dL [facility] Creatinine 0.99 0.70 - 1.25 mg/dL [facility] BICARB 27(H) 22 - 26 mEq/L [facility] eGFR (2020 CKD-EPI) 108 >=60 ml/min/1.7 3m2 [facility] Comment: The estimated glomerular filtration rate (eGFR) was calculated using the CKD-EPI 2020 creatinine equation, which does not include race as a factor. This equation is validated in individuals 18 years of age and older, and eGFR is normalized to a body surface area of 1.73m^2. Potassium 4.4 3.5 - 5.3 mmol/L [facility] Blood 01/26/2024 9:57 AM CDT 01/26/2024 10:07 AM CDT Jessica Garza MD LABORATORY Performing Organization Address [facility]/ZIP Co de Phone Number [facility] [address] [address] * (ABNORMAL) CBC WITH PLTS/AUTO DIFF (01/26/2024 9:57 AM CDT) WBC 17.97(H) 4.00 - 10.00 k/cmm [facility] RBC 5.31 4.60 - 6.00 m/cmm [facility] Hgb 15.4 13.1 - 17.5 g/dL [facility] Hematocrit 47.8 40.0 - 51.0 % [facility] MCV 90.0 80.0 - 100.0 fL [facility] MCH 29.0 25.0 - 32.0 pg [facility] MCHC 32.2 31.0 - 36.0 g/dL [facility] RDW 12.6 11.5 - 14.5 % [facility] Plt 250 150 - 400 k/cmm [facility] MPV 10.7 6.5 - 12.5 fL [facility] Automated Abs Neutrophil 15.71(H) 1.70 - 6.50 k/cmm [facility] Comment:Preliminary ANC, Fin al Result to Follow Abs Immature Granulocyte 0.08 0.00 - 0.09 k/cmm [facility] Comment:The Immature Granulo cyte Absolute count contains metamyelocytes and myelocytes. Abs Neutrophil 15.71(H) 1.70 - 6.50 k/cmm [facility] Abs Lymphocyte 1.01 0.80 - 4.00 k/cmm [facility] Abs Monocyte 1.15(H) 0.20 - 1.00 k/cmm [facility] Abs Eosinophil 0.00 0.00 - 0.60 k/cmm [facility] Abs Basophil 0.02 0.00 - 0.20 k/cmm [facility] Blood 01/26/2024 9:57 AM CDT 01/26/2024 10:24 AM CDT Jessica Garza MD LABORATORY [facility] [address] [address] * (ABNORMAL) BLOOD GASES (01/26/2024 9:57 AM CDT) PH Reyes 7.32 7.32 - 7.42 [facility] PCO2 Reyes 55(H) 41 - 51 mmHG [facility] PO2 Reyes 26 25 - 40 mmHG [facility] Bicarb Reyes 27 24 - 28 mEq/L [facility] O2 Sat Reyes 37 % [facility] Base Exc Reyes -1.3 -10.0 - 2.0 mmol/L [facility] Blood Venous 01/26/2024 9:57 AM CDT 01/26/2024 10:07 AM CDT Jessica Garza MD LABORATORY Performing Organization Address [facility]/ZIP Co de Phone Number [facility] [address] [address] * ED US CRITICAL CARE (01/26/2024 9:56 [...] (01/26/2024 9:51 AM CDT) Magalie Screen Negative [facility] Blood 01/26/2024 9:51 AM CDT 01/26/2024 11:59 AM CDT Jessica Garza MD LAB TRANSFUSION SER VICES Performing Organization Address City/[facility]/ZIP Co de Phone Number [facility] [address] [place] [address] * BLOOD TYPING-ABO/RH (01/26/2024 9:51 AM CDT) ABORHG B POS [facility] Blood 01/26/2024 9:51 AM CDT 01/26/2024 11:59 AM CDT Jessica Garza MD LAB TRANSFUSION SER VICES Performing Organization Address [facility] Co de Phone Number [facility] [address] [address] * PRECAUTIONARY TUBE (01/26/2024 9:51 AM CDT) Prec Tube Precautionary Blood Bank Specimen Received. [facility] Blood 01/26/2024 9:51 AM CDT 01/26/2024 10:27 AM CDT Jessica Garza MD LAB TRANSFUSION SER VICES Performing Organization Address [facility] de Phone Number [facility] [address] [address] documented in this encounter Visit Diagnoses Diagnosis [...] Thu01/27/24 at 2004, Moderate Pain (Use First) polyethylene glycol 3350 [...] Thu01/26/24 at 1936, Until Thu01/27/24 at 2004 documented in this encounter Active and Recently [...] Discontinued 1040 (Given - Provid er: Daniel Verdugo, KAVIN) ceFAZolin (ANCEF) IVPB 3 g (CANCELED) 3 [...] MESERET Florez)0840 (Dual Sign-Off - Provider: Patricia Atkins RN - Comment: Saline flush completed prior to [...] Patricia Atkins, KAVIN)1331 (Given - Provider: Daniel Verdugo, KAVIN) LA MED REC REVIEW BY PHARMACY(Linked Group 1) [...] Pain (Use First) 2125 (Given - Provider: Nguyen Barron RN) HYDROmorphone PF (DILAUDID) 1 mg/mL injection 0.4 mg (CANCELED) 0.4 mg, IV Push, PACU PRN Q5MIN, 5 doses, Starting on Thu01/26/24 at 1824, Until Thu01/26/24 at 1925, Severe Pain (Use First) 1905 (Given - Provider: Kenisha Chamberlain RN) oxyCODONE (ROXICODONE) tablet 5-10 mg 5-10 mg, Oral, Q6H PRN, Starting on Thu01/27/24 at 0757, Until Thu01/27/24 at 2004, Moderate Pain (Use First) Linked Groups Order Group 1: DC MED REC REVIEW BY PHARMACYJu to [facility] Discharge Date: 01/27/2024, Discharge Location: Home, Anticipated [...] pm Group 2: VTE prophylaxis contraindicated[facility]ump to [facility] Contraindication Reason: Procedure, Does not apply, PROTOCOL, Starting on Thu01/26/24 at 1936, Until Thu01/27/24 at 2003 And VTE - Prophylaxis Contraindication Communication (COMPLETED) Contraindication Reason: Procedure documented in this encounter
--- OUTSIDE RECORDS SUMMARY | 2024-02-11 13:20 | XMS_ITS | Encounter Summary ---
Author Organization [facility] Address [address] [place] [phone] Phone Care Team Providers Care Annealing Furnace Tender Name Role Phone Donna Baker MD Unavailable [phone] Encounter Details Date Type Department Care Team (Late Contact Info) Description 01/26/2024 Orders Only [facility] Film Room [facility] Radiology Department [facility] [address] [place] [phone] Provider, [place] [address] Referral of patient (Primary Dx) Social History Tobacco Use Types Packs/Day Years [...] [facility] [address] [address] 03/14/2024 11:15 AM PAINT TRIMMER PIPE BOWLS Appointment [facility] [address] [address] Kenisha Banuelos PA-C [address] [phone] Scheduled Discharge Disposition: Discharged to home or self care 03/14/2024 11:40 AM PAINT TRIMMER PIPE BOWLS Office [facility] [address] [address] Donna Baker MD [address] [address] Scheduled Discharge Disposition: Discharged to home or self care documented as of this encounter Results * XR UPPER EXTREMITY OUTSIDE FILMS (01/26/2024 6:54 AM CDT) Narrative User, [id number] - 01/26/2024 10:39 AM CDT Outside Film Only Outside Provider RAD OUTSIDE FILMS * XR UPPER EXTREMITY OUTSIDE FILMS (01/26/2024 6:51 AM CDT) Narrative User [id number] - 01/26/2024 10:37 AM CDT Outside Film Only Outside Provider RAD OUTSIDE FILMS * XR UPPER EXTREMITY OUTSIDE FILMS (01/26/2024 6:47 AM CDT) Narrative User, [id number] - 01/26/2024 10:39 AM CDT Outside Film Only Outside Provider RAD OUTSIDE FILMS documented in this encounter Visit Diagnoses Diagnosis Referral of patient- Primary Referral of patient without examination or treatment documented in this encounter Care Teams Annealing Furnace Tender Relationship Specialty Start Date End Date Donna Baker MD [address] [address] Orthopedics 02/04/24 documented as of this encounter
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
== END 2024-01-26 08:34 | disposition home or self-care (01) ==
LOC: AMB 02-11 13:17
PROVIDERS: Visit Provider Emergency Medicine Emergency Medical Services
DX: S42.202A Unspecified fracture of upper end of left humerus, initial encounter for closed fracture (principal)
CPT/HCPCS: A0425; A0427